=== PATIENT | female | born 1970 | race African-American/Black ===

== ENCOUNTER → 2016-08-03 | Outpatient (CLI) | payer MEDICARE, MEDICAID ==
[~2016-08-03] MED LIST: ALBUTEROL0.09 MG/A4 IH; AMANTADINE100 MG PO; ATIVAN PO; CEFDINIR300 MG PO; CELEXA20 MG PO; CLONAZEPAM PO; CYCLOBENZ5 MG PO; DEPAKOTE ER500 M1 PO; DEPAKOTE500 M2 PO; DETROL LA4 PO; DOXYCYCLINE 10100 MG PO; ESKALITH300 MG PO; GEODON PO; GEODON40 MG PO; INDERAL 10MG10 MG PO; INDERAL LA160 MG PO; KLONOPIN0.5 MG PO; LEVAQUIN 750MG750 M1 PO; LITHIUM 30300 MG/CAP PO; LUNESTA2 MG PO; LUNESTA3 MG PO; LYRICA 150MG C150 MG PO; NORCO 325 MG-51 TAB PO; OMEPRAZOLE D/R20 MG PO; Patient's Own Medication PO; RISPERDAL3 M1 PO; SENOKOT-S TAB1 UDTAB PO; SKELAXIN400 MG PO; TESSALON PERLE200 MG PO; TRAZADONE HYDR100 MG PO; TUSS PO; VIBRAMYCIN100 MG PO; VIIBRYD40 MG PO; XANAX0.25 MG PO; XANAX0.5 M1 PO; ZANTAC 7575 M1 PO
== END ==
LOC: LAB 07:53
DX: Z01.419 Encounter for gynecological examination (general) (routine) without abnormal findings (principal); J43.9 Emphysema, unspecified; R63.5 Abnormal weight gain; F41.1 Generalized anxiety disorder; E55.9 Vitamin D deficiency, unspecified; R73.01 Impaired fasting glucose

== ENCOUNTER 2017-01-20 19:55 | Emergency (ER) | payer MEDICARE, MEDICAID ==
[~2017-01-20] VITALS: Ht 175.3 cm; Wt 94.5 kg
[~2017-01-20 19:55] MED LIST changes: -CYCLOBENZ5 MG PO; -INDERAL 10MG10 MG PO; -ZANTAC 7575 M1 PO
[2017-01-20] MEDS ORDERED: ZANTAC 7575 M1 PO (20:04)
[2017-01-20] MEDS ORDERED: CYCLOBENZ5 MG PO (20:04)
[2017-01-20] MEDS ORDERED: INDERAL 10MG10 MG PO (20:06)
[2017-01-20 21:52] VITALS: BP 125/93
== END 2017-01-20 21:54 | disposition home or self-care (01) ==
LOC: ED 19:55
DX: F41.9 Anxiety disorder, unspecified (principal); F31.9 Bipolar disorder, unspecified; R06.02 Shortness of breath; R07.9 Chest pain, unspecified

== ENCOUNTER → 2017-03-05 | Outpatient (CLI) | payer MEDICARE ==
[~2017-03-05] MED LIST changes: +CYCLOBENZ5 MG PO; +INDERAL 10MG10 MG PO; +LAMICTAL 25MG T25 MG PO; +RT SPIRIVA INH18 MCG IH; +SYMBICORT1 AE2 IH; +ZANTAC 7575 M1 PO
== END ==
LOC: LAB 07:51
DX: Z79.899 Other long term (current) drug therapy (principal)

== ENCOUNTER → 2017-03-10 | Outpatient (CLI) | payer MEDICARE | LOC: LAB 09:52 | DX: E78.2 Mixed hyperlipidemia (principal); R73.01 Impaired fasting glucose; J44.1 Chronic obstructive pulmonary disease with (acute) exacerbation ==

== ENCOUNTER 2017-03-22 21:00 | Emergency (ER) | payer MEDICARE ==
[~2017-03-22] VITALS: Ht 175.3 cm; Wt 95.9 kg
[~2017-03-22 21:00] MED LIST changes: -LAMICTAL 25MG T25 MG PO; -RT SPIRIVA INH18 MCG IH; -SYMBICORT1 AE2 IH
[2017-03-22] MEDS ORDERED: LAMICTAL 25MG T25 MG PO (21:11)
[2017-03-22] MEDS ORDERED: SYMBICORT1 AE2 IH (21:11)
[2017-03-22] MEDS ORDERED: LITHIUM 30300 MG/CAP PO (21:12)
[2017-03-22] MEDS ORDERED: RT SPIRIVA INH18 MCG IH (21:12)
[2017-03-23 00:04] VITALS: BP 145/93
== END 2017-03-23 00:04 | disposition home or self-care (01) ==
LOC: ED 21:00
DX: K59.00 Constipation, unspecified (principal); F31.9 Bipolar disorder, unspecified; F41.9 Anxiety disorder, unspecified; F60.3 Borderline personality disorder; B19.20 Unspecified viral hepatitis C without hepatic coma
CPT/HCPCS: J1885; J2270; J2405; J7030; Q9967

== ENCOUNTER → 2017-03-30 | Outpatient (CLI) | payer MEDICARE ==
[~2017-03-30] VITALS: Ht 175.3 cm; Wt 95.0 kg
[~2017-03-30] MED LIST changes: +IMITREX100 M1 PO; +LAMICTAL 25MG T25 MG PO; +LINZESS145 MCG PO; +RANITIDINE HCL150 M1 PO; +RT SPIRIVA INH18 MCG IH; +SYMBICORT1 AE2 IH
[2017-03-30 12:49] VITALS: BP 124/74
== END ==
LOC: AMSURD 11:49
DX: K59.00 Constipation, unspecified (principal)

== ENCOUNTER → 2017-03-31 | Outpatient (CLI) | payer MEDICARE ==
[2017-03-30 12:49] VITALS: BP 124/74
== END ==
LOC: RAD 11:42
DX: K59.00 Constipation, unspecified (principal)

== ENCOUNTER → 2017-04-16 | Outpatient (CLI) | payer MEDICARE ==
[2017-03-30 12:49] VITALS: BP 124/74
== END ==
LOC: LAB 07:51
DX: B18.2 Chronic viral hepatitis C (principal)

== ENCOUNTER → 2017-04-27 | Day surgery (SDC) | payer MEDICARE ==
[2017-03-30 12:49] VITALS: BP 124/74
== END ==
LOC: MSO 14:23
DX: R19.4 Change in bowel habit (principal); F41.9 Anxiety disorder, unspecified; G43.909 Migraine, unspecified, not intractable, without status migrainosus; F31.9 Bipolar disorder, unspecified; J44.9 Chronic obstructive pulmonary disease, unspecified; K21.9 Gastro-esophageal reflux disease without esophagitis; K59.00 Constipation, unspecified; M79.7 Fibromyalgia; Z87.891 Personal history of nicotine dependence
CPT/HCPCS: 00810; J3010; J7120

== ENCOUNTER → 2017-07-16 | Outpatient (CLI) | payer MEDICARE ==
[2017-03-30 12:49] VITALS: BP 124/74
== END ==
LOC: LAB 07:47
DX: Z51.81 Encounter for therapeutic drug level monitoring (principal); Z79.899 Other long term (current) drug therapy

== ENCOUNTER → 2017-09-08 | Outpatient (CLI) | payer MEDICARE ==
[2017-03-30 12:49] VITALS: BP 124/74
[2017-09-08 10:58] LABS: ALBUMIN 4.3 g/dL (3.5-5.0); BUN/CREATININE RATIO 15.1 (6.0-26.0); CALCIUM 9.6 mg/dL (8.4-10.2); POTASSIUM 4.5 mmol/L (3.6-5.0); TOTAL BILIRUBIN 0.1 mg/dL (0.2-1.3); TOTAL PROTEIN 7.6 g/dL (6.3-8.2)
[2017-09-08 10:59] LABS: EOS # 0.3 (0.04-0.40); EOS % 3.1 % (1.0-5.0); HEMATOCRIT 38.5 % (37.0-47.0); HEMOGLOBIN 12.1 g/dL (12.5-16.0); LYMPH# 2.6 (1.50-4.00); MEAN CELL VOLUME 93 fl (78-100); MEAN CORPUSCULAR HEMOGLOBIN 29 pg (27-31); MEAN CORPUSCULAR HGB CONC 31 g/dL (33-37); MEAN PLATELET VOLUME 9.1 fl (7.4-10.4); MONO # 0.8 (0.20-0.80); NEU # 4.4 (1.40-6.50); PLATELET COUNT 327 K/mm3 (130-400); RED BLOOD COUNT 4.16 M/mm3 (4.10-5.30)
== END ==
LOC: RAD 10:09
PROVIDERS: Nurse Practitioner Family
DX: M54.6 Pain in thoracic spine (principal); R63.5 Abnormal weight gain; R53.81 Other malaise; Z88.1 Allergy status to other antibiotic agents

== ENCOUNTER → 2017-12-15 | Outpatient (CLI) | payer MEDICARE ==
[2017-03-30 12:49] VITALS: BP 124/74
[2017-12-15 11:18] LABS: BUN/CREATININE RATIO 10.6 (6.0-26.0); CALCIUM 9.1 mg/dL (8.4-10.2); POTASSIUM 4.1 mmol/L (3.6-5.0); TOTAL BILIRUBIN 0.3 mg/dL (0.2-1.3); TOTAL PROTEIN 7.8 g/dL (6.3-8.2)
== END ==
LOC: LAB 10:32
PROVIDERS: Family Medicine
DX: R73.9 Hyperglycemia, unspecified (principal)

== ENCOUNTER 2018-04-08 08:14 | Emergency (ER) | payer MEDICARE ==
[2018-04-08 08:51] LABS: EOS # 0.2 (0.04-0.40); EOS % 2.8 % (1.0-5.0); HEMATOCRIT 40.6 % (37.0-47.0); HEMOGLOBIN 13.1 g/dL (12.5-16.0); LYMPH# 2.1 (1.50-4.00); MEAN CELL VOLUME 85 fl (78-100); MEAN CORPUSCULAR HEMOGLOBIN 27 pg (27-31); MEAN CORPUSCULAR HGB CONC 32 g/dL (33-37); MONO # 0.9 (0.20-0.80); NEU # 5.1 (1.40-6.50); PLATELET COUNT 252 K/mm3 (130-400); RED BLOOD COUNT 4.78 M/mm3 (4.10-5.30); RED CELL DISTRIBUTION WIDTH 17.1 % (11.5-14.5); WHITE BLOOD COUNT 8.3 K/mm3 (4.8-10.8)
[2018-04-08 09:03] LABS: ALBUMIN 4.4 g/dL (3.5-5.0); CALCIUM 9.8 mg/dL (8.4-10.2); POTASSIUM 3.8 mmol/L (3.6-5.0); TOTAL BILIRUBIN 0.8 mg/dL (0.2-1.3); TOTAL PROTEIN 7.9 g/dL (6.3-8.2)
[2018-04-08] MEDS ORDERED: ZOFRAN ODT4 MG PO (10:57)
[2018-04-08] MEDS ORDERED: VOLTAREN GEL1% TOP (11:09)
[2018-04-08] MEDS ORDERED: GLUCOPHAGE PO (11:10)
[2018-04-08] MEDS ORDERED: SYMBICORT1 AE2 (11:10)
[2018-04-08] MEDS ORDERED: PRILOSEC 20MG20 MG PO (11:10)
[2018-04-08] MEDS ORDERED: LYRICA 150MG C150 MG PO (11:11)
[2018-04-08 11:12] VITALS: BP 132/88
[2018-04-08] MEDS ORDERED: GEODON (11:12)
[2018-04-08] MEDS ORDERED: MELOXICAM15 MG PO (11:13)
== END 2018-04-08 11:15 | disposition home or self-care (01) ==
LOC: ED 08:14
PROVIDERS: Nurse Practitioner Primary Care
DX: G43.909 Migraine, unspecified, not intractable, without status migrainosus (principal); E11.9 Type 2 diabetes mellitus without complications; Z79.84 Long term (current) use of oral hypoglycemic drugs; F99 Mental disorder, not otherwise specified; Z87.891 Personal history of nicotine dependence; Z79.899 Other long term (current) drug therapy
CPT/HCPCS: J1200; J1885; J2270; J2405; J2550; J7030

== ENCOUNTER → 2018-04-11 | Outpatient (CLI) | payer MEDICARE ==
[2018-04-08 11:12] VITALS: BP 132/88
[~2018-04-11] MED LIST changes: +GEODON; +GLUCOPHAGE PO; +MELOXICAM15 MG PO; +PRILOSEC 20MG20 MG PO; +SYMBICORT1 AE2; +VOLTAREN GEL1% TOP; +ZOFRAN ODT4 MG PO
[2018-04-11 20:00] LABS: ALBUMIN 4.4 g/dL (3.5-5.0); CALCIUM 9.7 mg/dL (8.4-10.2); POTASSIUM 3.8 mmol/L (3.6-5.0); TOTAL BILIRUBIN 0.5 mg/dL (0.2-1.3); TOTAL PROTEIN 7.7 g/dL (6.3-8.2)
== END ==
LOC: LAB 14:00
PROVIDERS: Psychiatry & Neurology Psychiatry
DX: Z79.899 Other long term (current) drug therapy (principal)

== ENCOUNTER → 2018-09-09 | Outpatient (CLI) | payer MEDICARE | LOC: CARDREHAB 10:27 | DX: R07.9 Chest pain, unspecified (principal); Z82.49 Family history of ischemic heart disease and other diseases of the circulatory system | CPT/HCPCS: A9500 ==

== ENCOUNTER → 2018-09-23 | Outpatient (CLI) | payer MEDICARE ==
[2018-09-23 09:14] LABS: EOS # 0.3 (0.04-0.40); HEMATOCRIT 41.1 % (37.0-47.0); HEMOGLOBIN 12.6 g/dL (12.5-16.0); LYMPH# 2.2 (1.50-4.00); MEAN CELL VOLUME 84 fl (78-100); MEAN CORPUSCULAR HEMOGLOBIN 26 pg (27-31); MEAN CORPUSCULAR HGB CONC 31 g/dL (33-37); MEAN PLATELET VOLUME 9.2 fl (7.4-10.4); MONO # 0.8 (0.20-0.80); PLATELET COUNT 378 K/mm3 (130-400); RED BLOOD COUNT 4.92 M/mm3 (4.10-5.30); RED CELL DISTRIBUTION WIDTH 16.4 % (11.5-14.5); WHITE BLOOD COUNT 8.4 K/mm3 (4.8-10.8)
[2018-09-23 09:20] LABS: ALBUMIN 4.3 g/dL (3.5-5.0); CALCIUM 9.7 mg/dL (8.4-10.2); POTASSIUM 4.1 mmol/L (3.6-5.0); TOTAL BILIRUBIN 0.4 mg/dL (0.2-1.3)
== END ==
LOC: LAB 08:21
PROVIDERS: Family Medicine
DX: R73.9 Hyperglycemia, unspecified (principal); K59.09 Other constipation; R35.0 Frequency of micturition

== ENCOUNTER → 2018-11-05 | Outpatient (CLI) | payer MEDICARE | LOC: AMSURD 18:17 → RAD 18:17 | DX: M79.9 Soft tissue disorder, unspecified (principal); M25.472 Effusion, left ankle; W19.XXXA Unspecified fall, initial encounter ==

== ENCOUNTER → 2019-01-13 | Outpatient (CLI) | payer MEDICARE ==
[2018-11-23 15:59] VITALS: BP 120/77
[~2019-01-13] MED LIST changes: +ACETAMINOPHEN-H1 TA2 PO; +ALPRAZOLAM0.5 MG PO; +AMITRIPTYLINE H25 M2 PO; +ARIPIPRAZOLE10 M1 PO; +DULOXETINE60 MG PO; +LYRICA300 MG PO; +PHENTERMINE H37.5 M2 PO; +SUMATRIPTAN SU100 MG PO
== END ==
LOC: RAD 09:44
DX: M25.461 Effusion, right knee (principal)

== ENCOUNTER → 2019-01-25 | Outpatient (CLI) | payer MEDICARE ==
[2018-11-23 15:59] VITALS: BP 120/77
== END ==
LOC: RAD 08:00
DX: M79.89 Other specified soft tissue disorders (principal)

== ENCOUNTER → 2019-02-06 | Outpatient (CLI) | payer MEDICARE ==
[2018-11-23 15:59] VITALS: BP 120/77
[2019-02-06 08:27] LABS: ALBUMIN 3.8 g/dL (3.5-5.0); POTASSIUM 4.1 mmol/L (3.5-5.1)
[2019-02-06 08:29] LABS: CALCIUM 9.4 mg/dL (8.3-10.5)
[2019-02-06 08:32] LABS: TOTAL BILIRUBIN 0.2 mg/dL (0.2-1.2)
== END ==
LOC: LAB 08:06
PROVIDERS: Psychiatry & Neurology Psychiatry
DX: Z79.899 Other long term (current) drug therapy (principal); Z51.81 Encounter for therapeutic drug level monitoring

== ENCOUNTER → 2019-03-02 | Outpatient (CLI) | payer MEDICARE ==
[2018-11-23 15:59] VITALS: BP 120/77
== END ==
LOC: RAD 11:40
DX: M17.11 Unilateral primary osteoarthritis, right knee (principal)

== ENCOUNTER → 2019-03-29 | Outpatient (CLI) | payer MEDICARE ==
[2018-11-23 15:59] VITALS: BP 120/77
== END ==
LOC: RAD 13:44
DX: R42 Dizziness and giddiness (principal); R51 Headache
CPT/HCPCS: Q9967

== ENCOUNTER 2019-05-03 10:29 | Emergency (ER) | payer MEDICARE ==
[~2019-05-03] VITALS: Ht 175.3 cm; Wt 119.5 kg
[2019-05-03] MEDS ORDERED: LITHIUM 30300 MG/CAP (10:40)
[2019-05-03 11:20] LABS: HEMATOCRIT 39.1 % (37.0-47.0); HEMOGLOBIN 12.4 g/dL (12.5-16.0); MEAN CELL VOLUME 83 fl (78-100); MEAN CORPUSCULAR HEMOGLOBIN 26 pg (27-31); MEAN CORPUSCULAR HGB CONC 32 g/dL (33-37); MEAN PLATELET VOLUME 9.7 fl (7.4-10.4); PLATELET COUNT 338 K/mm3 (130-400); RED BLOOD COUNT 4.71 M/mm3 (4.10-5.30); RED CELL DISTRIBUTION WIDTH 17.7 % (11.5-14.5); WHITE BLOOD COUNT 7.8 K/mm3 (4.8-10.8)
[2019-05-03 11:22] LABS: ALBUMIN 4.2 g/dL (3.5-5.0)
[2019-05-03 11:23] LABS: POTASSIUM 3.6 mmol/L (3.5-5.1)
[2019-05-03 11:24] LABS: CALCIUM 9.4 mg/dL (8.3-10.5)
[2019-05-03 11:25] LABS: TOTAL PROTEIN 7.9 g/dL (6.4-8.3)
[2019-05-03 11:36] LABS: LYMPHOCYTE 27 % (20-51); MONOCYTE 13 % (3-10); NEUTROPHILS 59 % (42-75); OVALOCYTES 1+; TARGET CELLS 1+
[2019-05-03 11:48] LABS: TOTAL BILIRUBIN 0.5 mg/dL (0.2-1.2)
[2019-05-03 12:27] LABS: PH-URINE 5.5 (5.0 - 8.0); URINE APPEARANCE CLEAR; URINE BILIRUBIN NEGATIVE (NEGATIVE); URINE BLOOD TRACE (NEGATIVE); URINE COLOR YELLOW; URINE GLUCOSE NEGATIVE (NEGATIVE); URINE KETONE NEGATIVE (NEGATIVE); URINE LEUKOCYTE ESTERASE TRACE (NEGATIVE); URINE NITRATE NEGATIVE (NEGATIVE); URINE PROTEIN(semi-quant) TRACE mg/dL (NEGATIVE); URINE UROBILINOGEN NORMAL (NORMAL)
[2019-05-03] MEDS ORDERED: PRILOSEC 20MG20 MG PO (13:22)
[2019-05-03] MEDS ORDERED: ZANTAC150 M1 PO (13:22)
[2019-05-03] MEDS ORDERED: CARAFATE 1GM1 G PO (13:22)
[2019-05-03 13:40] VITALS: BP 154/98
== END 2019-05-03 13:42 | disposition home or self-care (01) ==
LOC: ED 10:29
PROVIDERS: Physician Assistant
DX: K21.9 Gastro-esophageal reflux disease without esophagitis (principal); F31.9 Bipolar disorder, unspecified; M79.7 Fibromyalgia; J44.9 Chronic obstructive pulmonary disease, unspecified; Z88.8 Allergy status to other drugs, medicaments and biological substances; Z79.51 Long term (current) use of inhaled steroids
CPT/HCPCS: J7030; Q9967

== ENCOUNTER 2019-05-28 09:40 | Emergency (ER) | payer MEDICARE ==
[~2019-05-28] VITALS: Wt 121.5 kg
[~2019-05-28 09:40] MED LIST changes: +CARAFATE 1GM1 G PO; +LITHIUM 30300 MG/CAP; +ZANTAC150 M1 PO
[2019-05-28 10:24] LABS: EOS # 0.1 (0.04-0.40); EOS % 1.4 % (1.0-5.0); HEMATOCRIT 39.6 % (37.0-47.0); HEMOGLOBIN 12.3 g/dL (12.5-16.0); LYMPH# 2.2 (1.50-4.00); MEAN CELL VOLUME 83 fl (78-100); MEAN CORPUSCULAR HEMOGLOBIN 26 pg (27-31); MEAN CORPUSCULAR HGB CONC 31 g/dL (33-37); MEAN PLATELET VOLUME 9.7 fl (7.4-10.4); MONO # 0.8 (0.20-0.80); NEU # 5.3 (1.40-6.50); PLATELET COUNT 342 K/mm3 (130-400); RED BLOOD COUNT 4.78 M/mm3 (4.10-5.30); RED CELL DISTRIBUTION WIDTH 17.1 % (11.5-14.5); WHITE BLOOD COUNT 8.5 K/mm3 (4.8-10.8)
[2019-05-28 10:34] LABS: ALBUMIN 4.1 g/dL (3.5-5.0); SODIUM 138 mmol/L (136-145)
[2019-05-28 10:35] LABS: CALCIUM 9.9 mg/dL (8.3-10.5)
[2019-05-28 10:36] LABS: GLUCOSE 121 mg/dL (65-105); TOTAL PROTEIN 7.7 g/dL (6.4-8.3)
[2019-05-28 10:37] LABS: CARBON DIOXIDE 25 mmol/L (22-29)
[2019-05-28 10:38] LABS: TOTAL BILIRUBIN 0.5 mg/dL (0.2-1.2)
[2019-05-28 10:42] LABS: AST-SGOT 14 U/L (5-34)
[2019-05-28 10:43] LABS: ALT/SGPT 16 U/L (0-55)
[2019-05-28 10:49] LABS: TROPONIN-I < 0.03 ng/mL (<0.030)
[2019-05-28 12:25] VITALS: BP 163/81
== END 2019-05-28 12:26 | disposition home or self-care (01) ==
LOC: ED 09:40
PROVIDERS: Family Medicine
DX: R20.2 Paresthesia of skin (principal); F41.9 Anxiety disorder, unspecified; M79.7 Fibromyalgia; F32.9 Major depressive disorder, single episode, unspecified; K21.9 Gastro-esophageal reflux disease without esophagitis; I10 Essential (primary) hypertension; G43.909 Migraine, unspecified, not intractable, without status migrainosus; B19.20 Unspecified viral hepatitis C without hepatic coma; Z86.73 Personal history of transient ischemic attack (TIA), and cerebral infarction without residual deficits; Z87.891 Personal history of nicotine dependence

== ENCOUNTER → 2019-05-29 | Outpatient (CLI) | payer MEDICARE ==
[2019-05-28 12:25] VITALS: BP 163/81
== END ==
LOC: RAD 10:47
DX: M79.89 Other specified soft tissue disorders (principal)

== ENCOUNTER → 2019-08-21 | Outpatient (CLI) | payer MEDICARE | LOC: LAB 13:49 | DX: M54.9 Dorsalgia, unspecified (principal) ==

== ENCOUNTER 2019-10-09 00:17 | Emergency (ER) | payer MEDICARE | END 2019-10-09 00:31 | disposition left against medical advice (07) | LOC: ED 00:17 | DX: Z72.9 Problem related to lifestyle, unspecified (principal) ==

== ENCOUNTER → 2019-11-11 | Outpatient (CLI) | payer MEDICARE | LOC: LAB 15:32 | DX: J44.9 Chronic obstructive pulmonary disease, unspecified (principal); J02.9 Acute pharyngitis, unspecified; R19.7 Diarrhea, unspecified ==

== ENCOUNTER → 2020-01-03 | Outpatient (CLI) | payer MEDICARE ==
[2020-01-03 14:21] LABS: URINE APPEARANCE CLEAR; URINE BILIRUBIN NEGATIVE (NEGATIVE); URINE BLOOD NEGATIVE (NEGATIVE); URINE COLOR YELLOW; URINE GLUCOSE NEGATIVE (NEGATIVE); URINE KETONE NEGATIVE (NEGATIVE); URINE LEUKOCYTE ESTERASE NEGATIVE (NEGATIVE); URINE MUCUS PRESENT (NOT PRESENT); URINE NITRATE NEGATIVE (NEGATIVE); URINE PROTEIN(semi-quant) TRACE mg/dL (NEGATIVE); URINE UROBILINOGEN NORMAL (NORMAL)
== END ==
LOC: LAB 09:19
PROVIDERS: Family Medicine
DX: R30.0 Dysuria (principal)

== ENCOUNTER → 2020-01-31 | Outpatient (CLI) | payer MEDICARE | LOC: RAD 09:34 | DX: I51.7 Cardiomegaly (principal); K76.0 Fatty (change of) liver, not elsewhere classified; J44.9 Chronic obstructive pulmonary disease, unspecified | CPT/HCPCS: Q9967 ==

== ENCOUNTER → 2020-06-11 | Outpatient (CLI) | payer MEDICARE ==
[2020-03-25 10:08] VITALS: BP 122/78
[~2020-06-11] MED LIST changes: +ABILIFY5 MG PO; +BUDESONIDE-FO10.2 G1 IH; +CYCLOBENZAPRINE10 M1 PO; +PROAIR HFA0.09 MG/AC IH; +WELLBUTRIN XL300 M1 PO
[2020-06-11 14:54] LABS: EOS # 0.2 (0.04-0.40); EOS % 1.9 % (1.0-5.0); HEMATOCRIT 42.5 % (37.0-47.0); HEMOGLOBIN 13.3 g/dL (12.5-16.0); LYMPH# 3.4 (1.50-4.00); MEAN CELL VOLUME 85 fl (78-100); MEAN CORPUSCULAR HEMOGLOBIN 27 pg (27-31); MEAN CORPUSCULAR HGB CONC 31 g/dL (33-37); MEAN PLATELET VOLUME 9.1 fl (7.4-10.4); NEU # 6.2 (1.40-6.50); PLATELET COUNT 305 K/mm3 (130-400); WHITE BLOOD COUNT 10.8 K/mm3 (4.8-10.8)
[2020-06-11 15:04] LABS: ALBUMIN 3.9 g/dL (3.5-5.0); POTASSIUM 3.9 mmol/L (3.5-5.1)
[2020-06-11 15:05] LABS: CALCIUM 9.2 mg/dL (8.3-10.5)
[2020-06-11 15:07] LABS: TOTAL PROTEIN 7.5 g/dL (6.4-8.3)
[2020-06-11 15:09] LABS: PROTHROMBIN TIME 9.8 SECONDS (9.0-12.0); TOTAL BILIRUBIN 0.3 mg/dL (0.2-1.2)
== END ==
LOC: RAD 14:30
PROVIDERS: Family Medicine
DX: M25.432 Effusion, left wrist (principal); E66.9 Obesity, unspecified; Z79.01 Long term (current) use of anticoagulants; E55.9 Vitamin D deficiency, unspecified; R58 Hemorrhage, not elsewhere classified

== ENCOUNTER → 2020-06-13 | Outpatient (CLI) | payer MEDICARE ==
[2020-03-25 10:08] VITALS: BP 122/78
[2020-06-13 12:08] LABS: URINE APPEARANCE HAZY; URINE BILIRUBIN NEGATIVE (NEGATIVE); URINE BLOOD NEGATIVE (NEGATIVE); URINE COLOR YELLOW; URINE GLUCOSE NEGATIVE (NEGATIVE); URINE KETONE NEGATIVE (NEGATIVE); URINE LEUKOCYTE ESTERASE NEGATIVE (NEGATIVE); URINE MUCUS PRESENT (NOT PRESENT); URINE NITRATE NEGATIVE (NEGATIVE); URINE PROTEIN(semi-quant) TRACE mg/dL (NEGATIVE); URINE UROBILINOGEN NORMAL (NORMAL)
== END ==
LOC: LAB 10:46
PROVIDERS: Family Medicine
DX: R19.7 Diarrhea, unspecified (principal)

== ENCOUNTER → 2020-07-17 | Outpatient (CLI) | payer MEDICARE ==
[2020-03-25 10:08] VITALS: BP 122/78
== END ==
LOC: RAD 10:33
DX: M51.34 Other intervertebral disc degeneration, thoracic region (principal); M47.816 Spondylosis without myelopathy or radiculopathy, lumbar region; M16.11 Unilateral primary osteoarthritis, right hip

== ENCOUNTER → 2020-08-14 | Outpatient (CLI) | payer MEDICARE ==
[2020-03-25 10:08] VITALS: BP 122/78
== END ==
LOC: LAB 07:59
DX: Z51.81 Encounter for therapeutic drug level monitoring (principal)

== ENCOUNTER → 2020-09-10 | Outpatient (CLI) | payer MEDICARE ==
[2020-03-25 10:08] VITALS: BP 122/78
[~2020-09-10] MED LIST changes: +ALPRAZOLAM1 MG PO; +AMITRIPTYLINE H50 M1 PO; +ASENAPINE MALEA10 MG PO; +BETAMETHASONE V15 G1 TP; +DITROPAN 5MG TAB5 MG PO; +EFFER-K20 MEQ PO; +FOLIC ACID1 MG PO; +GOOD NEIGHBOR P20 M1 PO; +LAMOTRIGINE100 M3 PO; +LAMOTRIGINE25 M1 PO; -LITHIUM 30300 MG/CAP; +LITHIUM CARBON300 M3 PO; +METFORMIN ER500 MG PO; +METHOTREXATE2.5 MG PO; +MIRALAX119 GM PO; +PHENERGAN 25 TA25 MG PO; +POTASSIUM CHLO20 ME4 PO; +PREDNISONE20 M1 PO; +PREGABALIN300 MG PO; +PROPRANOLOL ER80 MG PO; +PROTONIX20 M1 PO; +RT ADVAIR HFA 1112 G IH; +SYMBICORT1 AE3 IH; +TOPIRAMATE200 MG PO; +VITAMIN D3125 MC1 PO; +WELLBUTRIN XL150 M2 PO
== END ==
LOC: RAD 07:39
DX: M47.816 Spondylosis without myelopathy or radiculopathy, lumbar region (principal); M47.817 Spondylosis without myelopathy or radiculopathy, lumbosacral region

== ENCOUNTER 2020-11-24 15:11 | Emergency (ER) | payer MEDICARE ==
[~2020-11-24 15:11] MED LIST changes: -ALPRAZOLAM1 MG PO; -AMITRIPTYLINE H50 M1 PO; -ASENAPINE MALEA10 MG PO; -BETAMETHASONE V15 G1 TP; -DITROPAN 5MG TAB5 MG PO; -EFFER-K20 MEQ PO; -FOLIC ACID1 MG PO; -GOOD NEIGHBOR P20 M1 PO; -LAMOTRIGINE100 M3 PO; -LAMOTRIGINE25 M1 PO; -LITHIUM CARBON300 M3 PO; -METFORMIN ER500 MG PO; -METHOTREXATE2.5 MG PO; -MIRALAX119 GM PO; -PHENERGAN 25 TA25 MG PO; -POTASSIUM CHLO20 ME4 PO; -PREDNISONE20 M1 PO; -PREGABALIN300 MG PO; -PROPRANOLOL ER80 MG PO; -PROTONIX20 M1 PO; -RT ADVAIR HFA 1112 G IH; -SYMBICORT1 AE3 IH; -TOPIRAMATE200 MG PO; -VITAMIN D3125 MC1 PO; -WELLBUTRIN XL150 M2 PO
[2020-11-24] MEDS ORDERED: TOPIRAMATE200 MG PO (15:32)
[2020-11-24] MEDS ORDERED: ALPRAZOLAM1 MG PO (15:32)
[2020-11-24] MEDS ORDERED: DITROPAN 5MG TAB5 MG PO (15:32)
[2020-11-24] MEDS ORDERED: AMITRIPTYLINE H50 M1 PO (15:32)
[2020-11-24] MEDS ORDERED: BETAMETHASONE V15 G1 TP (15:33)
[2020-11-24] MEDS ORDERED: MELOXICAM15 MG PO (15:33)
[2020-11-24 16:07] LABS: BASO # 0.03 (0.02-0.10); EOS # 0.19 (0.04-0.40); EOS % 2.5 % (1.0-5.0); HEMATOCRIT 42.1 % (37.0-47.0); HEMOGLOBIN 13.8 g/dL (12.5-16.0); LYMPH# 1.95 (1.50-4.00); MEAN CELL VOLUME 85 fl (78-100); MEAN CORPUSCULAR HEMOGLOBIN 28 pg (27-31); MEAN CORPUSCULAR HGB CONC 33 g/dL (33-37); MEAN PLATELET VOLUME 9.6 fl (7.4-10.4); NEU # 4.59 (1.40-6.50); PLATELET COUNT 198 K/mm3 (130-400); RED BLOOD COUNT 4.97 M/mm3 (4.10-5.30); RED CELL DISTRIBUTION WIDTH 16.8 % (11.5-14.5); WHITE BLOOD COUNT 7.7 K/mm3 (4.8-10.8)
[2020-11-24 16:15] LABS: PH-URINE 6.5 (5.0 - 8.0); URINE APPEARANCE CLEAR; URINE BILIRUBIN NEGATIVE (NEGATIVE); URINE BLOOD TRACE (NEGATIVE); URINE COLOR YELLOW; URINE KETONE NEGATIVE (NEGATIVE); URINE LEUKOCYTE ESTERASE NEGATIVE (NEGATIVE); URINE MUCUS PRESENT (NOT PRESENT); URINE NITRATE NEGATIVE (NEGATIVE); URINE PROTEIN(semi-quant) NEGATIVE (NEGATIVE); URINE UROBILINOGEN NORMAL (NORMAL)
[2020-11-24 16:18] LABS: POTASSIUM 3.2 mmol/L (3.5-5.1)
[2020-11-24 16:19] LABS: CALCIUM 9.2 mg/dL (8.3-10.5)
[2020-11-24 16:20] LABS: TOTAL PROTEIN 7.4 g/dL (6.4-8.3)
[2020-11-24 16:22] LABS: TOTAL BILIRUBIN 0.4 mg/dL (0.2-1.2)
[2020-11-24] MEDS ORDERED: PHENERGAN 25 TA25 MG PO (17:04)
[2020-11-24] MEDS ORDERED: PROTONIX20 M1 PO (17:04)
[2020-11-24 18:21] VITALS: BP 168/89
== END 2020-11-24 18:18 | disposition short-term general hospital (02) ==
LOC: ED 15:11
PROVIDERS: Nurse Practitioner
DX: E11.65 Type 2 diabetes mellitus with hyperglycemia (principal); E87.6 Hypokalemia; J44.9 Chronic obstructive pulmonary disease, unspecified; F41.9 Anxiety disorder, unspecified; F32.9 Major depressive disorder, single episode, unspecified; Z79.51 Long term (current) use of inhaled steroids; Z79.899 Other long term (current) drug therapy
CPT/HCPCS: J3480; J7030

== ENCOUNTER → 2020-12-02 | Outpatient (CLI) | payer MEDICARE ==
[2020-11-24 18:21] VITALS: BP 168/89
[~2020-12-02] MED LIST changes: +ALPRAZOLAM1 MG PO; +AMITRIPTYLINE H50 M1 PO; +ASENAPINE MALEA10 MG PO; +BETAMETHASONE V15 G1 TP; +DITROPAN 5MG TAB5 MG PO; +EFFER-K20 MEQ PO; +FOLIC ACID1 MG PO; +GOOD NEIGHBOR P20 M1 PO; +LAMOTRIGINE100 M3 PO; +LAMOTRIGINE25 M1 PO; +LITHIUM CARBON300 M3 PO; +METFORMIN ER500 MG PO; +METHOTREXATE2.5 MG PO; +MIRALAX119 GM PO; +PHENERGAN 25 TA25 MG PO; +POTASSIUM CHLO20 ME4 PO; +PREDNISONE20 M1 PO; +PREGABALIN300 MG PO; +PROPRANOLOL ER80 MG PO; +PROTONIX20 M1 PO; +RT ADVAIR HFA 1112 G IH; +SYMBICORT1 AE3 IH; +TOPIRAMATE200 MG PO; +VITAMIN D3125 MC1 PO; +WELLBUTRIN XL150 M2 PO
[2020-12-02 12:15] LABS: ALBUMIN 4.1 g/dL (3.5-5.0); POTASSIUM 4.1 mmol/L (3.5-5.1)
[2020-12-02 12:17] LABS: CALCIUM 9.7 mg/dL (8.3-10.5)
[2020-12-02 12:18] LABS: TOTAL PROTEIN 7.8 g/dL (6.4-8.3)
[2020-12-02 12:20] LABS: TOTAL BILIRUBIN 0.3 mg/dL (0.2-1.2)
[2020-12-02 13:47] LABS: URINE APPEARANCE CLOUDY; URINE BILIRUBIN NEGATIVE (NEGATIVE); URINE BLOOD NEGATIVE (NEGATIVE); URINE COLOR YELLOW; URINE GLUCOSE NEGATIVE (NEGATIVE); URINE KETONE NEGATIVE (NEGATIVE); URINE LEUKOCYTE ESTERASE NEGATIVE (NEGATIVE); URINE MUCUS PRESENT (NOT PRESENT); URINE NITRATE NEGATIVE (NEGATIVE); URINE PROTEIN(semi-quant) NEGATIVE (NEGATIVE); URINE UROBILINOGEN NORMAL (NORMAL)
== END ==
LOC: LAB 11:55
PROVIDERS: Family Medicine
DX: E11.9 Type 2 diabetes mellitus without complications (principal); N39.0 Urinary tract infection, site not specified

== ENCOUNTER → 2020-12-17 | Outpatient (CLI) | payer MEDICARE ==
[2020-11-24 18:21] VITALS: BP 168/89
== END ==
LOC: LAB 14:00
DX: R30.9 Painful micturition, unspecified (principal)

== ENCOUNTER 2020-12-20 08:30 | Emergency (ER) | payer MEDICARE ==
[~2020-12-20 08:30] MED LIST changes: -ASENAPINE MALEA10 MG PO; -EFFER-K20 MEQ PO; -FOLIC ACID1 MG PO; -GOOD NEIGHBOR P20 M1 PO; -LAMOTRIGINE100 M3 PO; -LAMOTRIGINE25 M1 PO; -LITHIUM CARBON300 M3 PO; -METFORMIN ER500 MG PO; -METHOTREXATE2.5 MG PO; -MIRALAX119 GM PO; -POTASSIUM CHLO20 ME4 PO; -PREDNISONE20 M1 PO; -PREGABALIN300 MG PO; -PROPRANOLOL ER80 MG PO; -RT ADVAIR HFA 1112 G IH; -SYMBICORT1 AE3 IH; -VITAMIN D3125 MC1 PO; -WELLBUTRIN XL150 M2 PO
[2020-12-20 09:35] LABS: BASO # 0.03 (0.02-0.10); EOS # 0.26 (0.04-0.40); EOS % 3.4 % (1.0-5.0); HEMATOCRIT 43.7 % (37.0-47.0); HEMOGLOBIN 13.8 g/dL (12.5-16.0); LYMPH# 1.86 (1.50-4.00); MEAN CELL VOLUME 86 fl (78-100); MEAN CORPUSCULAR HEMOGLOBIN 27 pg (27-31); MEAN CORPUSCULAR HGB CONC 32 g/dL (33-37); MEAN PLATELET VOLUME 9.1 fl (7.4-10.4); MONO # 0.92 (0.20-0.80); NEU # 4.58 (1.40-6.50); PLATELET COUNT 297 K/mm3 (130-400); RED BLOOD COUNT 5.11 M/mm3 (4.10-5.30); WHITE BLOOD COUNT 7.7 K/mm3 (4.8-10.8)
[2020-12-20 09:40] LABS: POTASSIUM 3.8 mmol/L (3.5-5.1); SODIUM 136 mmol/L (136-145)
[2020-12-20 09:42] LABS: CALCIUM 9.9 mg/dL (8.3-10.5)
[2020-12-20 09:43] LABS: GLUCOSE 173 mg/dL (65-105); TOTAL PROTEIN 7.9 g/dL (6.4-8.3)
[2020-12-20 09:45] LABS: TOTAL BILIRUBIN 0.3 mg/dL (0.2-1.2)
[2020-12-20 09:48] LABS: AST-SGOT 24 U/L (5-34)
[2020-12-20 09:49] LABS: ALT/SGPT 38 U/L (0-55)
[2020-12-20 09:50] LABS: LIPASE 32 U/L (8-78)
[2020-12-20 09:51] LABS: CARBON DIOXIDE 17 mmol/L (22-29)
[2020-12-20 10:21] LABS: TROPONIN-I < 0.03 ng/mL (<0.030)
[2020-12-20] MEDS ORDERED: WELLBUTRIN XL150 M2 PO (10:21)
[2020-12-20] MEDS ORDERED: FOLIC ACID1 MG PO (10:22)
[2020-12-20] MEDS ORDERED: ASENAPINE MALEA10 MG PO (10:22)
[2020-12-20] MEDS ORDERED: LITHIUM CARBON300 M3 PO (10:23)
[2020-12-20] MEDS ORDERED: MIRALAX119 GM PO (10:24)
[2020-12-20] MEDS ORDERED: METFORMIN ER500 MG PO (10:24)
[2020-12-20] MEDS ORDERED: GOOD NEIGHBOR P20 M1 PO (10:25)
[2020-12-20] MEDS ORDERED: ZOFRAN ODT4 MG PO (10:25)
[2020-12-20] MEDS ORDERED: SUMATRIPTAN SU100 MG PO (10:27)
[2020-12-20] MEDS ORDERED: SYMBICORT1 AE3 IH (10:27)
[2020-12-20] MEDS ORDERED: VITAMIN D3125 MC1 PO (10:29)
[2020-12-20 11:54] LABS: URINE APPEARANCE HAZY; URINE BILIRUBIN NEGATIVE (NEGATIVE); URINE BLOOD NEGATIVE (NEGATIVE); URINE COLOR YELLOW; URINE GLUCOSE NEGATIVE (NEGATIVE); URINE KETONE NEGATIVE (NEGATIVE); URINE LEUKOCYTE ESTERASE NEGATIVE (NEGATIVE); URINE NITRATE NEGATIVE (NEGATIVE); URINE PROTEIN(semi-quant) NEGATIVE (NEGATIVE); URINE UROBILINOGEN NORMAL (NORMAL); URINE WBC 0-1 /hpf (0-3)
[2020-12-20 12:01] VITALS: BP 138/89
== END 2020-12-20 12:06 | disposition home or self-care (01) ==
LOC: ED 08:30
PROVIDERS: Nurse Practitioner
DX: R10.31 Right lower quadrant pain (principal); R91.1 Solitary pulmonary nodule; T36.8X5A Adverse effect of other systemic antibiotics, initial encounter; E11.9 Type 2 diabetes mellitus without complications; F31.9 Bipolar disorder, unspecified; F41.9 Anxiety disorder, unspecified; Z87.891 Personal history of nicotine dependence; Z79.899 Other long term (current) drug therapy; Z79.84 Long term (current) use of oral hypoglycemic drugs
CPT/HCPCS: J2405; J3010; J7030; Q9967

== ENCOUNTER → 2020-12-26 | Outpatient (CLI) | payer MEDICARE ==
[~2020-12-26] MED LIST changes: +ASENAPINE MALEA10 MG PO; +EFFER-K20 MEQ PO; +FOLIC ACID1 MG PO; +GOOD NEIGHBOR P20 M1 PO; +LAMOTRIGINE100 M3 PO; +LAMOTRIGINE25 M1 PO; +LITHIUM CARBON300 M3 PO; +METFORMIN ER500 MG PO; +METHOTREXATE2.5 MG PO; +MIRALAX119 GM PO; +POTASSIUM CHLO20 ME4 PO; +PREDNISONE20 M1 PO; +PREGABALIN300 MG PO; +PROPRANOLOL ER80 MG PO; +RT ADVAIR HFA 1112 G IH; +SYMBICORT1 AE3 IH; +VITAMIN D3125 MC1 PO; +WELLBUTRIN XL150 M2 PO
== END ==
LOC: RAD 07:41
DX: R91.8 Other nonspecific abnormal finding of lung field (principal); R59.0 Localized enlarged lymph nodes
CPT/HCPCS: Q9967

== ENCOUNTER → 2021-02-11 | Outpatient (CLI) | payer MEDICARE | LOC: LAB 12:33 | DX: R59.9 Enlarged lymph nodes, unspecified (principal); R93.89 Abnormal findings on diagnostic imaging of other specified body structures ==

== ENCOUNTER 2021-02-14 16:13 | Emergency (ER) | payer MEDICARE ==
[~2021-02-14] VITALS: Ht 175.3 cm; Wt 126.8 kg
[~2021-02-14 16:13] MED LIST changes: -EFFER-K20 MEQ PO; -LAMOTRIGINE100 M3 PO; -LAMOTRIGINE25 M1 PO; -METHOTREXATE2.5 MG PO; -POTASSIUM CHLO20 ME4 PO; -PREDNISONE20 M1 PO; -PREGABALIN300 MG PO; -PROPRANOLOL ER80 MG PO; -RT ADVAIR HFA 1112 G IH
[2021-02-14 17:07] LABS: BASO # 0.02 (0.02-0.10); EOS # 0.21 (0.04-0.40); EOS % 2.7 % (1.0-5.0); HEMATOCRIT 44.9 % (37.0-47.0); HEMOGLOBIN 13.8 g/dL (12.5-16.0); LYMPH# 2.27 (1.50-4.00); MEAN CELL VOLUME 87 fl (78-100); MEAN CORPUSCULAR HEMOGLOBIN 27 pg (27-31); MEAN CORPUSCULAR HGB CONC 31 g/dL (33-37); MEAN PLATELET VOLUME 8.9 fl (7.4-10.4); MONO # 1.01 (0.20-0.80); NEU # 4.17 (1.40-6.50); PLATELET COUNT 264 K/mm3 (130-400); RED BLOOD COUNT 5.17 M/mm3 (4.10-5.30); RED CELL DISTRIBUTION WIDTH 16.1 % (11.5-14.5); WHITE BLOOD COUNT 7.7 K/mm3 (4.8-10.8)
[2021-02-14] MEDS ORDERED: LITHIUM 30300 MG/CAP PO (17:19)
[2021-02-14 17:25] LABS: ALBUMIN 3.8 g/dL (3.5-5.0); POTASSIUM 3.4 mmol/L (3.5-5.1)
[2021-02-14 17:26] LABS: CALCIUM 9.9 mg/dL (8.3-10.5)
[2021-02-14 17:27] LABS: TOTAL PROTEIN 8.1 g/dL (6.4-8.3)
[2021-02-14 17:29] LABS: TOTAL BILIRUBIN 0.4 mg/dL (0.2-1.2)
[2021-02-14 18:15] LABS: URINE COLOR YELLOW
[2021-02-14 18:16] LABS: URINE APPEARANCE HAZY; URINE BILIRUBIN NEGATIVE (NEGATIVE); URINE BLOOD TRACE (NEGATIVE); URINE GLUCOSE NEGATIVE (NEGATIVE); URINE KETONE NEGATIVE (NEGATIVE); URINE LEUKOCYTE ESTERASE NEGATIVE (NEGATIVE); URINE NITRATE NEGATIVE (NEGATIVE); URINE PROTEIN(semi-quant) NEGATIVE (NEGATIVE); URINE UROBILINOGEN NORMAL (NORMAL); URINE WBC 0-1 /hpf (0-3)
[2021-02-14 20:31] VITALS: BP 137/89
== END 2021-02-14 20:32 | disposition home or self-care (01) ==
LOC: ED 16:13
PROVIDERS: Nurse Practitioner
DX: E86.0 Dehydration (principal); R10.30 Lower abdominal pain, unspecified; F41.0 Panic disorder [episodic paroxysmal anxiety]
CPT/HCPCS: J2060; J7030

== ENCOUNTER 2021-03-11 18:21 | Emergency (ER) | payer MEDICARE ==
[2021-03-11 19:06] VITALS: BP 151/97
== END 2021-03-11 19:10 | disposition left against medical advice (07) ==
LOC: ED 18:21
DX: R69 Illness, unspecified (principal)

== ENCOUNTER → 2021-03-24 | Outpatient (CLI) | payer MEDICARE ==
[~2021-03-24] MED LIST changes: +EFFER-K20 MEQ PO; +LAMOTRIGINE100 M3 PO; +LAMOTRIGINE25 M1 PO; +METHOTREXATE2.5 MG PO; +POTASSIUM CHLO20 ME4 PO; +PREDNISONE20 M1 PO; +PREGABALIN300 MG PO; +PROPRANOLOL ER80 MG PO; +RT ADVAIR HFA 1112 G IH
[2021-03-24 14:42] LABS: POTASSIUM 4.2 mmol/L (3.5-5.1)
[2021-03-24 14:43] LABS: CALCIUM 11.3 mg/dL (8.3-10.5)
[2021-03-24 14:45] LABS: TOTAL PROTEIN 8.6 g/dL (6.4-8.3)
[2021-03-24 14:47] LABS: TOTAL BILIRUBIN 0.4 mg/dL (0.2-1.2)
[2021-03-24 15:04] LABS: BASO # 0.01 (0.02-0.10); EOS # 0.28 (0.04-0.40); EOS % 3.3 % (1.0-5.0); HEMATOCRIT 49.5 % (37.0-47.0); HEMOGLOBIN 15.6 g/dL (12.5-16.0); LYMPH# 2.83 (1.50-4.00); MEAN CELL VOLUME 86 fl (78-100); MEAN CORPUSCULAR HEMOGLOBIN 27 pg (27-31); MEAN CORPUSCULAR HGB CONC 32 g/dL (33-37); MEAN PLATELET VOLUME 9.3 fl (7.4-10.4); MONO # 1.16 (0.20-0.80); NEU # 4.29 (1.40-6.50); PLATELET COUNT 282 K/mm3 (130-400); RED BLOOD COUNT 5.74 M/mm3 (4.10-5.30); RED CELL DISTRIBUTION WIDTH 14.6 % (11.5-14.5); WHITE BLOOD COUNT 8.6 K/mm3 (4.8-10.8)
[2021-03-27 13:08] LABS: VITAMIN A 46.8 mcg/dL (())
== END ==
LOC: LAB 14:11
PROVIDERS: Family Medicine
DX: E11.22 Type 2 diabetes mellitus with diabetic chronic kidney disease (principal); N18.1 Chronic kidney disease, stage 1; D63.1 Anemia in chronic kidney disease; E56.9 Vitamin deficiency, unspecified

== ENCOUNTER 2021-03-28 21:21 | Emergency (ER) | payer MEDICARE ==
[~2021-03-28] VITALS: Ht 175.3 cm; Wt 12666.0 kg
[~2021-03-28 21:21] MED LIST changes: -EFFER-K20 MEQ PO; -LAMOTRIGINE100 M3 PO; -LAMOTRIGINE25 M1 PO; -METHOTREXATE2.5 MG PO; -POTASSIUM CHLO20 ME4 PO; -PREDNISONE20 M1 PO; -PREGABALIN300 MG PO; -PROPRANOLOL ER80 MG PO; -RT ADVAIR HFA 1112 G IH
[2021-03-28] MEDS ORDERED: GLUCOPHAGE PO (21:28)
[2021-03-28 22:29] LABS: BASO # 0.02 (0.02-0.10); EOS # 0.18 (0.04-0.40); EOS % 2.1 % (1.0-5.0); HEMATOCRIT 45.5 % (37.0-47.0); HEMOGLOBIN 14.5 g/dL (12.5-16.0); LYMPH# 2.52 (1.50-4.00); MEAN CELL VOLUME 85 fl (78-100); MEAN CORPUSCULAR HEMOGLOBIN 27 pg (27-31); MEAN CORPUSCULAR HGB CONC 32 g/dL (33-37); MEAN PLATELET VOLUME 9.4 fl (7.4-10.4); MONO # 1.11 (0.20-0.80); NEU # 4.69 (1.40-6.50); PLATELET COUNT 269 K/mm3 (130-400); RED BLOOD COUNT 5.37 M/mm3 (4.10-5.30); RED CELL DISTRIBUTION WIDTH 14.4 % (11.5-14.5); WHITE BLOOD COUNT 8.5 K/mm3 (4.8-10.8)
[2021-03-28 22:45] LABS: ALBUMIN 3.8 g/dL (3.5-5.0); POTASSIUM 3.4 mmol/L (3.5-5.1)
[2021-03-28 22:46] LABS: CALCIUM 10.9 mg/dL (8.3-10.5)
[2021-03-28 22:48] LABS: TOTAL PROTEIN 7.8 g/dL (6.4-8.3)
[2021-03-28 22:49] LABS: TOTAL BILIRUBIN 0.4 mg/dL (0.2-1.2)
[2021-03-29] MEDS ORDERED: PREGABALIN300 MG PO (08:29)
[2021-03-29 09:32] LABS: POTASSIUM 3.4 mmol/L (3.5-5.1)
[2021-03-29 09:33] LABS: CALCIUM 9.8 mg/dL (8.3-10.5)
[2021-03-29 09:45] LABS: PH-URINE 5.5 (5.0 - 8.0); URINE APPEARANCE CLEAR; URINE BILIRUBIN NEGATIVE (NEGATIVE); URINE BLOOD NEGATIVE (NEGATIVE); URINE COLOR YELLOW; URINE GLUCOSE NEGATIVE (NEGATIVE); URINE KETONE NEGATIVE (NEGATIVE); URINE LEUKOCYTE ESTERASE NEGATIVE (NEGATIVE); URINE NITRATE NEGATIVE (NEGATIVE); URINE PROTEIN(semi-quant) NEGATIVE (NEGATIVE); URINE UROBILINOGEN NORMAL (NORMAL); URINE WBC 0-1 /hpf (0-3)
[2021-03-29] MEDS ORDERED: EFFER-K20 MEQ PO (10:09)
[2021-03-29 10:21] VITALS: BP 127/77
== END 2021-03-29 10:21 | disposition home or self-care (01) ==
LOC: ED 21:21
PROVIDERS: Family Medicine
DX: K58.9 Irritable bowel syndrome, unspecified (principal); F19.94 Other psychoactive substance use, unspecified with psychoactive substance-induced mood disorder; E86.0 Dehydration; E11.9 Type 2 diabetes mellitus without complications; G43.909 Migraine, unspecified, not intractable, without status migrainosus; F41.9 Anxiety disorder, unspecified; F32.9 Major depressive disorder, single episode, unspecified; Z87.891 Personal history of nicotine dependence; Z79.84 Long term (current) use of oral hypoglycemic drugs; Z79.899 Other long term (current) drug therapy
CPT/HCPCS: J2060; J2405; J2765; J7030

== ENCOUNTER 2021-04-07 17:03 | Emergency (ER) | payer MEDICARE ==
[~2021-04-07 17:03] MED LIST changes: +EFFER-K20 MEQ PO; +PREGABALIN300 MG PO
[2021-04-07] MEDS ORDERED: PREDNISONE20 M1 PO (17:23)
[2021-04-07] MEDS ORDERED: POTASSIUM CHLO20 ME4 PO (17:23)
[2021-04-07 18:05] LABS: BASO # 0.02 (0.02-0.10); EOS # 0.07 (0.04-0.40); EOS % 0.6 % (1.0-5.0); HEMOGLOBIN 13.6 g/dL (12.5-16.0); LYMPH# 2.43 (1.50-4.00); MEAN CELL VOLUME 89 fl (78-100); MEAN CORPUSCULAR HEMOGLOBIN 27 pg (27-31); MEAN CORPUSCULAR HGB CONC 31 g/dL (33-37); MEAN PLATELET VOLUME 9.9 fl (7.4-10.4); MONO # 0.77 (0.20-0.80); NEU # 7.76 (1.40-6.50); PLATELET COUNT 282 K/mm3 (130-400); RED BLOOD COUNT 4.96 M/mm3 (4.10-5.30); RED CELL DISTRIBUTION WIDTH 14.9 % (11.5-14.5); WHITE BLOOD COUNT 11.1 K/mm3 (4.8-10.8)
[2021-04-07 18:19] LABS: ALBUMIN 3.8 g/dL (3.5-5.0); POTASSIUM 4.1 mmol/L (3.5-5.1); SODIUM 136 mmol/L (136-145)
[2021-04-07 18:20] LABS: CALCIUM 9.8 mg/dL (8.3-10.5)
[2021-04-07 18:21] LABS: GLUCOSE 372 mg/dL (65-105); TOTAL PROTEIN 7.5 g/dL (6.4-8.3)
[2021-04-07 18:23] LABS: TOTAL BILIRUBIN 0.2 mg/dL (0.2-1.2)
[2021-04-07 18:27] LABS: AST-SGOT 15 U/L (5-34)
[2021-04-07 18:28] LABS: ALT/SGPT 18 U/L (0-55)
[2021-04-07 18:32] LABS: CARBON DIOXIDE 15 mmol/L (22-29)
[2021-04-07 19:14] LABS: URINE APPEARANCE HAZY; URINE BILIRUBIN NEGATIVE (NEGATIVE); URINE BLOOD NEGATIVE (NEGATIVE); URINE COLOR YELLOW; URINE KETONE NEGATIVE (NEGATIVE); URINE LEUKOCYTE ESTERASE NEGATIVE (NEGATIVE); URINE NITRATE NEGATIVE (NEGATIVE); URINE PROTEIN(semi-quant) TRACE mg/dL (NEGATIVE); URINE UROBILINOGEN NORMAL (NORMAL); URINE WBC 0-1 /hpf (0-3)
[2021-04-07 21:54] VITALS: BP 131/98
== END 2021-04-07 19:25 | disposition home or self-care (01) ==
LOC: ED 17:03
PROVIDERS: Nurse Practitioner
DX: E11.65 Type 2 diabetes mellitus with hyperglycemia (principal); E86.0 Dehydration; Z79.84 Long term (current) use of oral hypoglycemic drugs
CPT/HCPCS: J1815; J7030

== ENCOUNTER 2021-04-14 18:33 | Emergency (ER) | payer MEDICARE ==
[~2021-04-14] VITALS: Ht 175.3 cm; Wt 117.4 kg
[~2021-04-14 18:33] MED LIST changes: +POTASSIUM CHLO20 ME4 PO; +PREDNISONE20 M1 PO
[2021-04-14 19:16] LABS: BASO # 0.01 (0.02-0.10); EOS # 0.01 (0.04-0.40); EOS % 0.1 % (1.0-5.0); HEMATOCRIT 40.1 % (37.0-47.0); HEMOGLOBIN 12.6 g/dL (12.5-16.0); LYMPH# 1.67 (1.50-4.00); MEAN CELL VOLUME 89 fl (78-100); MEAN CORPUSCULAR HEMOGLOBIN 28 pg (27-31); MEAN CORPUSCULAR HGB CONC 31 g/dL (33-37); MEAN PLATELET VOLUME 9.4 fl (7.4-10.4); MONO # 0.56 (0.20-0.80); PLATELET COUNT 240 K/mm3 (130-400); RED BLOOD COUNT 4.49 M/mm3 (4.10-5.30); RED CELL DISTRIBUTION WIDTH 15.2 % (11.5-14.5)
[2021-04-14 19:38] LABS: ALBUMIN 3.7 g/dL (3.5-5.0); POTASSIUM 4.4 mmol/L (3.5-5.1)
[2021-04-14 19:40] LABS: CALCIUM 9.8 mg/dL (8.3-10.5)
[2021-04-14 19:41] LABS: TOTAL PROTEIN 7.4 g/dL (6.4-8.3)
[2021-04-14 19:46] LABS: URINE WBC 0 /hpf (0-3)
[2021-04-14 20:08] LABS: URINE APPEARANCE CLEAR; URINE BILIRUBIN NEGATIVE (NEGATIVE); URINE BLOOD NEGATIVE (NEGATIVE); URINE COLOR YELLOW; URINE KETONE NEGATIVE (NEGATIVE); URINE LEUKOCYTE ESTERASE NEGATIVE (NEGATIVE); URINE NITRATE NEGATIVE (NEGATIVE); URINE PROTEIN(semi-quant) TRACE mg/dL (NEGATIVE); URINE UROBILINOGEN NORMAL (NORMAL)
[2021-04-14 20:11] LABS: TOTAL BILIRUBIN 0.1 mg/dL (0.2-1.2)
[2021-04-14 22:52] VITALS: BP 117/70
== END 2021-04-14 22:52 | disposition home or self-care (01) ==
LOC: ED 18:33
PROVIDERS: Nurse Practitioner
DX: E11.65 Type 2 diabetes mellitus with hyperglycemia (principal); E86.0 Dehydration; F41.9 Anxiety disorder, unspecified; F31.9 Bipolar disorder, unspecified; J44.9 Chronic obstructive pulmonary disease, unspecified; M79.7 Fibromyalgia; K21.9 Gastro-esophageal reflux disease without esophagitis; G47.00 Insomnia, unspecified; G43.909 Migraine, unspecified, not intractable, without status migrainosus; Z79.52 Long term (current) use of systemic steroids; E66.9 Obesity, unspecified; Z79.899 Other long term (current) drug therapy; Z79.51 Long term (current) use of inhaled steroids; Z79.84 Long term (current) use of oral hypoglycemic drugs; Z68.38 Body mass index [BMI] 38.0-38.9, adult
CPT/HCPCS: J1815; J7030

== ENCOUNTER → 2021-04-16 | Outpatient (CLI) | payer MEDICARE ==
[~2021-04-16] MED LIST changes: +LAMOTRIGINE100 M3 PO; +LAMOTRIGINE25 M1 PO; +METHOTREXATE2.5 MG PO; +PROPRANOLOL ER80 MG PO; +RT ADVAIR HFA 1112 G IH
[2021-04-16 10:21] LABS: BASO # 0.01 K/mm3 (0.02-0.10); EOS % 3.2 % (1.0-5.0); HEMATOCRIT 43.8 % (37.0-47.0); HEMOGLOBIN 13.3 g/dL (12.5-16.0); LYMPH# 2.84 K/mm3 (1.50-4.00); MEAN CELL VOLUME 90 fl (78-100); MEAN CORPUSCULAR HEMOGLOBIN 27 pg (27-31); MEAN CORPUSCULAR HGB CONC 30 g/dL (33-37); MEAN PLATELET VOLUME 9.4 fl (7.4-10.4); MONO # 0.76 K/mm3 (0.20-0.80); NEU # 5.41 K/mm3 (1.40-6.50); PLATELET COUNT 252 K/mm3 (130-400); RED BLOOD COUNT 4.87 M/mm3 (4.10-5.30); RED CELL DISTRIBUTION WIDTH 15.7 % (11.5-14.5); WHITE BLOOD COUNT 9.3 K/mm3 (4.8-10.8)
[2021-04-16 10:57] LABS: ALBUMIN 3.7 g/dL (3.5-5.0); POTASSIUM 4.1 mmol/L (3.5-5.1)
[2021-04-16 10:59] LABS: CALCIUM 9.6 mg/dL (8.3-10.5)
[2021-04-16 11:00] LABS: TOTAL PROTEIN 7.3 g/dL (6.4-8.3)
[2021-04-16 11:02] LABS: TOTAL BILIRUBIN 0.3 mg/dL (0.2-1.2)
== END ==
LOC: LAB 10:04
PROVIDERS: Internal Medicine Medical Oncology
DX: R59.9 Enlarged lymph nodes, unspecified (principal)

== ENCOUNTER 2021-04-25 17:05 | Emergency (ER) | payer MEDICARE ==
[~2021-04-25] VITALS: Ht 175.3 cm; Wt 122.3 kg
[~2021-04-25 17:05] MED LIST changes: -LAMOTRIGINE100 M3 PO; -LAMOTRIGINE25 M1 PO; -METHOTREXATE2.5 MG PO; -PROPRANOLOL ER80 MG PO; -RT ADVAIR HFA 1112 G IH
[2021-04-25 18:16] LABS: BASO # 0.01 K/mm3 (0.02-0.10); EOS # 0.14 K/mm3 (0.04-0.40); EOS % 1.6 % (1.0-5.0); HEMOGLOBIN 13.2 g/dL (12.5-16.0); LYMPH# 1.98 K/mm3 (1.50-4.00); MEAN CELL VOLUME 89 fl (78-100); MEAN CORPUSCULAR HEMOGLOBIN 27 pg (27-31); MEAN CORPUSCULAR HGB CONC 31 g/dL (33-37); MEAN PLATELET VOLUME 9.2 fl (7.4-10.4); MONO # 0.57 K/mm3 (0.20-0.80); PLATELET COUNT 267 K/mm3 (130-400); RED BLOOD COUNT 4.84 M/mm3 (4.10-5.30); RED CELL DISTRIBUTION WIDTH 15.9 % (11.5-14.5)
[2021-04-25 18:26] VITALS: BP 128/84
[2021-04-25 18:26] LABS: ALBUMIN 3.8 g/dL (3.5-5.0)
[2021-04-25 18:27] LABS: POTASSIUM 3.9 mmol/L (3.5-5.1); SODIUM 140 mmol/L (136-145)
[2021-04-25 18:28] LABS: CALCIUM 9.7 mg/dL (8.3-10.5)
[2021-04-25 18:29] LABS: GLUCOSE 200 mg/dL (65-105); TOTAL PROTEIN 7.5 g/dL (6.4-8.3)
[2021-04-25 18:30] LABS: CARBON DIOXIDE 20 mmol/L (22-29)
[2021-04-25 18:34] LABS: AST-SGOT 15 U/L (5-34)
[2021-04-25 18:36] LABS: ALT/SGPT 21 U/L (0-55)
[2021-04-25 18:42] LABS: TROPONIN-I < 0.03 ng/mL (<0.030)
[2021-04-25 18:54] LABS: TOTAL BILIRUBIN 0.2 mg/dL (0.2-1.2)
[2021-04-25 18:55] LABS: URINE WBC 0 /hpf (0-3)
[2021-04-25 19:19] LABS: PH-URINE 7.5 (5.0 - 8.0); URINE APPEARANCE CLEAR; URINE BILIRUBIN NEGATIVE (NEGATIVE); URINE BLOOD NEGATIVE (NEGATIVE); URINE COLOR YELLOW; URINE GLUCOSE NEGATIVE (NEGATIVE); URINE KETONE NEGATIVE (NEGATIVE); URINE LEUKOCYTE ESTERASE NEGATIVE (NEGATIVE); URINE NITRATE NEGATIVE (NEGATIVE); URINE PROTEIN(semi-quant) TRACE mg/dL (NEGATIVE); URINE UROBILINOGEN NORMAL (NORMAL)
== END 2021-04-25 20:07 | disposition home or self-care (01) ==
LOC: ED 17:05
PROVIDERS: Nurse Practitioner Family
DX: E86.0 Dehydration (principal); E11.65 Type 2 diabetes mellitus with hyperglycemia; J44.9 Chronic obstructive pulmonary disease, unspecified; F31.9 Bipolar disorder, unspecified; G43.909 Migraine, unspecified, not intractable, without status migrainosus; Z79.899 Other long term (current) drug therapy; W18.30XA Fall on same level, unspecified, initial encounter; Y93.01 Activity, walking, marching and hiking
CPT/HCPCS: J7030

== ENCOUNTER → 2021-04-29 | Outpatient (CLI) | payer MEDICARE ==
[~2021-04-29] MED LIST changes: +LAMOTRIGINE100 M3 PO; +LAMOTRIGINE25 M1 PO; +METHOTREXATE2.5 MG PO; +PROPRANOLOL ER80 MG PO; +RT ADVAIR HFA 1112 G IH
[2021-04-29 09:11] LABS: BASO # 0.03 K/mm3 (0.02-0.10); EOS # 0.45 K/mm3 (0.04-0.40); EOS % 4.5 % (1.0-5.0); HEMATOCRIT 42.6 % (37.0-47.0); HEMOGLOBIN 13.1 g/dL (12.5-16.0); LYMPH# 2.94 K/mm3 (1.50-4.00); MEAN CELL VOLUME 90 fl (78-100); MEAN CORPUSCULAR HEMOGLOBIN 28 pg (27-31); MEAN CORPUSCULAR HGB CONC 31 g/dL (33-37); MEAN PLATELET VOLUME 9.3 fl (7.4-10.4); MONO # 0.65 K/mm3 (0.20-0.80); NEU # 5.88 K/mm3 (1.40-6.50); PLATELET COUNT 270 K/mm3 (130-400); RED BLOOD COUNT 4.75 M/mm3 (4.10-5.30); RED CELL DISTRIBUTION WIDTH 16.8 % (11.5-14.5)
[2021-04-29 09:23] LABS: ALBUMIN 3.7 g/dL (3.5-5.0); POTASSIUM 3.4 mmol/L (3.5-5.1)
[2021-04-29 09:24] LABS: CALCIUM 9.5 mg/dL (8.3-10.5)
[2021-04-29 09:25] LABS: TOTAL PROTEIN 7.1 g/dL (6.4-8.3)
[2021-04-29 09:27] LABS: TOTAL BILIRUBIN 0.3 mg/dL (0.2-1.2)
== END ==
LOC: LAB 08:50
PROVIDERS: Psychiatry & Neurology Psychiatry
DX: E11.9 Type 2 diabetes mellitus without complications (principal); Z79.899 Other long term (current) drug therapy

== ENCOUNTER → 2021-05-09 | Outpatient (CLI) | payer MEDICARE | LOC: LAB 15:07 | DX: Z20.822 Contact with and (suspected) exposure to COVID-19 (principal) ==

== ENCOUNTER → 2021-05-20 | Outpatient (CLI) | payer MEDICARE ==
[2021-05-20 15:21] LABS: BASO # 0.01 K/mm3 (0.02-0.10); EOS # 0.09 K/mm3 (0.04-0.40); EOS % 0.9 % (1.0-5.0); HEMATOCRIT 43.5 % (37.0-47.0); HEMOGLOBIN 13.3 g/dL (12.5-16.0); LYMPH# 1.99 K/mm3 (1.50-4.00); MEAN CELL VOLUME 92 fl (78-100); MEAN CORPUSCULAR HEMOGLOBIN 28 pg (27-31); MEAN CORPUSCULAR HGB CONC 31 g/dL (33-37); MEAN PLATELET VOLUME 9.4 fl (7.4-10.4); MONO # 0.39 K/mm3 (0.20-0.80); NEU # 7.93 K/mm3 (1.40-6.50); PLATELET COUNT 287 K/mm3 (130-400); RED BLOOD COUNT 4.72 M/mm3 (4.10-5.30); RED CELL DISTRIBUTION WIDTH 17.2 % (11.5-14.5); WHITE BLOOD COUNT 10.4 K/mm3 (4.8-10.8)
[2021-05-20 15:25] LABS: ALBUMIN 3.9 g/dL (3.5-5.0); POTASSIUM 4.1 mmol/L (3.5-5.1)
[2021-05-20 15:27] LABS: CALCIUM 9.8 mg/dL (8.3-10.5)
[2021-05-20 15:28] LABS: TOTAL PROTEIN 7.3 g/dL (6.4-8.3)
[2021-05-20 15:30] LABS: TOTAL BILIRUBIN 0.2 mg/dL (0.2-1.2)
[2021-05-20 22:41] LABS: IMMUNOGLOBULIN E, TOTAL 629 IU/mL (0-100)
[2021-05-21 16:12] LABS: TB GOLD INTERPRETATION.TB GOLD Negative (Negative)
[2021-05-28 11:56] LABS: ANGIOTENSIN CONVERTING ENZYME 57 U/L (16 - 85)
[2021-05-31 11:29] LABS: COCCIDIOIDES CF Negative (Negative); COCCIDIOIDES IGG Negative (Negative); COCCIDIOIDES IGM Positive (Negative)
== END ==
LOC: LAB 14:35
PROVIDERS: Internal Medicine Pulmonary Disease
DX: D86.2 Sarcoidosis of lung with sarcoidosis of lymph nodes (principal); R59.9 Enlarged lymph nodes, unspecified

== ENCOUNTER 2021-06-02 10:43 | Emergency (ER) | payer MEDICARE ==
[~2021-06-02] VITALS: Ht 175.3 cm; Wt 127.3 kg
[~2021-06-02 10:43] MED LIST changes: -LAMOTRIGINE100 M3 PO; -LAMOTRIGINE25 M1 PO; -METHOTREXATE2.5 MG PO; -PROPRANOLOL ER80 MG PO; -RT ADVAIR HFA 1112 G IH
[2021-06-02] MEDS ORDERED: METHOTREXATE2.5 MG PO (10:54)
[2021-06-02] MEDS ORDERED: RT ADVAIR HFA 1112 G IH (10:54)
[2021-06-02] MEDS ORDERED: PROPRANOLOL ER80 MG PO (10:55)
[2021-06-02] MEDS ORDERED: LAMOTRIGINE100 M3 PO (10:55)
[2021-06-02] MEDS ORDERED: LAMOTRIGINE25 M1 PO (10:56)
[2021-06-02 11:58] VITALS: BP 127/85
== END 2021-06-02 11:59 | disposition home or self-care (01) ==
LOC: ED 10:43
DX: F41.9 Anxiety disorder, unspecified (principal); R42 Dizziness and giddiness; F32.1 Major depressive disorder, single episode, moderate; K21.9 Gastro-esophageal reflux disease without esophagitis; G43.909 Migraine, unspecified, not intractable, without status migrainosus; E66.9 Obesity, unspecified; E11.9 Type 2 diabetes mellitus without complications; Z68.41 Body mass index [BMI] 40.0-44.9, adult; Z79.84 Long term (current) use of oral hypoglycemic drugs; Z79.899 Other long term (current) drug therapy

== ENCOUNTER → 2021-06-02 | Outpatient (CLI) | payer MEDICARE ==
[2021-06-02 10:39] LABS: BASO # 0.02 K/mm3 (0.02-0.10); EOS # 0.24 K/mm3 (0.04-0.40); EOS % 3.1 % (1.0-5.0); HEMATOCRIT 43.6 % (37.0-47.0); HEMOGLOBIN 13.2 g/dL (12.5-16.0); LYMPH# 2.09 K/mm3 (1.50-4.00); MEAN CELL VOLUME 94 fl (78-100); MEAN CORPUSCULAR HEMOGLOBIN 29 pg (27-31); MEAN CORPUSCULAR HGB CONC 30 g/dL (33-37); MONO # 0.39 K/mm3 (0.20-0.80); NEU # 4.89 K/mm3 (1.40-6.50); PLATELET COUNT 261 K/mm3 (130-400); RED BLOOD COUNT 4.63 M/mm3 (4.10-5.30); RED CELL DISTRIBUTION WIDTH 16.9 % (11.5-14.5); WHITE BLOOD COUNT 7.6 K/mm3 (4.8-10.8)
[2021-06-02 10:47] LABS: ALBUMIN 4.1 g/dL (3.5-5.0); POTASSIUM 4.2 mmol/L (3.5-5.1)
[2021-06-02 10:48] LABS: CALCIUM 9.9 mg/dL (8.3-10.5)
[2021-06-02 10:50] LABS: TOTAL PROTEIN 7.4 g/dL (6.4-8.3)
[2021-06-02 10:51] LABS: TOTAL BILIRUBIN 0.3 mg/dL (0.2-1.2)
== END ==
LOC: LAB 10:24
PROVIDERS: Internal Medicine Pulmonary Disease
DX: D86.2 Sarcoidosis of lung with sarcoidosis of lymph nodes (principal)

== ENCOUNTER → 2021-07-21 | Outpatient (CLI) | payer MEDICARE ==
[~2021-07-21] MED LIST changes: +DECADRON 4MG TAB4 MG; +LAMOTRIGINE100 M3 PO; +LAMOTRIGINE25 M1 PO; +LYMEPAK100 MG PO; +METHOTREXATE2.5 MG PO; +PROCHLORPERAZIN10 M2; +PROPRANOLOL ER80 MG PO; +RT ADVAIR HFA 1112 G IH
[2021-07-21 10:58] LABS: BASO # 0.03 K/mm3 (0.02-0.10); EOS # 0.18 K/mm3 (0.04-0.40); EOS % 2.4 % (1.0-5.0); HEMATOCRIT 43.4 % (37.0-47.0); HEMOGLOBIN 13.6 g/dL (12.5-16.0); LYMPH# 2.39 K/mm3 (1.50-4.00); MEAN CELL VOLUME 96 fl (78-100); MEAN CORPUSCULAR HEMOGLOBIN 30 pg (27-31); MEAN CORPUSCULAR HGB CONC 31 g/dL (33-37); MEAN PLATELET VOLUME 8.7 fl (7.4-10.4); MONO # 0.59 K/mm3 (0.20-0.80); NEU # 4.33 K/mm3 (1.40-6.50); PLATELET COUNT 273 K/mm3 (130-400); RED BLOOD COUNT 4.53 M/mm3 (4.10-5.30); RED CELL DISTRIBUTION WIDTH 16.5 % (11.5-14.5); WHITE BLOOD COUNT 7.5 K/mm3 (4.8-10.8)
[2021-07-21 11:25] LABS: POTASSIUM 5.1 mmol/L (3.5-5.1)
[2021-07-21 11:27] LABS: CALCIUM 10.1 mg/dL (8.3-10.5)
[2021-07-21 11:28] LABS: TOTAL PROTEIN 7.7 g/dL (6.4-8.3)
[2021-07-21 11:30] LABS: TOTAL BILIRUBIN 0.3 mg/dL (0.2-1.2)
== END ==
LOC: LAB 10:40
PROVIDERS: Family Medicine
DX: R19.7 Diarrhea, unspecified (principal)

== ENCOUNTER 2021-08-04 15:26 | Emergency (ER) | payer MEDICARE ==
[~2021-08-04] VITALS: Wt 125.3 kg
[~2021-08-04 15:26] MED LIST changes: -DECADRON 4MG TAB4 MG; -LYMEPAK100 MG PO; -PROCHLORPERAZIN10 M2
[2021-08-04 15:59] LABS: BASO # 0.01 K/mm3 (0.02-0.10); EOS # 0.13 K/mm3 (0.04-0.40); EOS % 1.3 % (1.0-5.0); HEMATOCRIT 45.3 % (37.0-47.0); HEMOGLOBIN 14.6 g/dL (12.5-16.0); MEAN CELL VOLUME 95 fl (78-100); MEAN CORPUSCULAR HEMOGLOBIN 31 pg (27-31); MEAN CORPUSCULAR HGB CONC 32 g/dL (33-37); MEAN PLATELET VOLUME 8.9 fl (7.4-10.4); MONO # 0.88 K/mm3 (0.20-0.80); NEU # 6.07 K/mm3 (1.40-6.50); PLATELET COUNT 285 K/mm3 (130-400); RED BLOOD COUNT 4.78 M/mm3 (4.10-5.30); RED CELL DISTRIBUTION WIDTH 16.1 % (11.5-14.5); WHITE BLOOD COUNT 9.7 K/mm3 (4.8-10.8)
[2021-08-04 16:11] LABS: ALBUMIN 4.5 g/dL (3.5-5.0); SODIUM 138 mmol/L (136-145)
[2021-08-04 16:12] LABS: CALCIUM 10.4 mg/dL (8.3-10.5)
[2021-08-04 16:13] LABS: GLUCOSE 144 mg/dL (65-105); TOTAL PROTEIN 8.2 g/dL (6.4-8.3)
[2021-08-04 16:14] LABS: CARBON DIOXIDE 20 mmol/L (22-29)
[2021-08-04 16:15] LABS: TOTAL BILIRUBIN 0.6 mg/dL (0.2-1.2)
[2021-08-04 16:19] LABS: AST-SGOT 22 U/L (5-34)
[2021-08-04 16:20] LABS: ALT/SGPT 35 U/L (0-55)
[2021-08-04 16:31] LABS: TROPONIN-I < 0.030 ng/mL (<0.030)
[2021-08-04] MEDS ORDERED: PROCHLORPERAZIN10 M2 (17:20)
[2021-08-04] MEDS ORDERED: DECADRON 4MG TAB4 MG (17:20)
[2021-08-04] MEDS ORDERED: LYMEPAK100 MG PO (17:20)
[2021-08-04 17:23] VITALS: BP 169/89
== END 2021-08-04 16:55 | disposition home or self-care (01) ==
LOC: ED 15:26
PROVIDERS: Nurse Practitioner
DX: R07.9 Chest pain, unspecified (principal); F41.9 Anxiety disorder, unspecified; F31.9 Bipolar disorder, unspecified; J44.9 Chronic obstructive pulmonary disease, unspecified; M79.7 Fibromyalgia; K21.9 Gastro-esophageal reflux disease without esophagitis; G43.909 Migraine, unspecified, not intractable, without status migrainosus; E66.9 Obesity, unspecified; E11.9 Type 2 diabetes mellitus without complications; Z79.899 Other long term (current) drug therapy; Z79.51 Long term (current) use of inhaled steroids; Z79.84 Long term (current) use of oral hypoglycemic drugs

== ENCOUNTER → 2021-08-04 | Outpatient (CLI) | payer MEDICARE | LOC: LAB 12:24 | DX: U07.1 COVID-19 (principal) ==

== ENCOUNTER → 2021-09-26 | Outpatient (CLI) | payer MEDICARE ==
[~2021-09-26] MED LIST changes: +DECADRON 4MG TAB4 MG; +LYMEPAK100 MG PO; +PROCHLORPERAZIN10 M2
[2021-09-26 13:43] LABS: ALBUMIN 4.5 g/dL (3.5-5.0); POTASSIUM 4.6 mmol/L (3.5-5.1)
[2021-09-26 13:45] LABS: CALCIUM 10.5 mg/dL (8.3-10.5)
[2021-09-26 13:48] LABS: TOTAL BILIRUBIN 0.6 mg/dL (0.2-1.2)
== END ==
LOC: RAD 09-23 14:00 → LAB 13:20 → RAD 13:20
PROVIDERS: Family Medicine
DX: D86.0 Sarcoidosis of lung (principal); E11.9 Type 2 diabetes mellitus without complications; R51.9 Headache, unspecified
CPT/HCPCS: Q9967

== ENCOUNTER 2021-10-16 18:18 | Emergency (ER) | payer MEDICARE ==
[~2021-10-16] VITALS: Ht 175.3 cm; Wt 122.9 kg
[2021-10-16 19:09] LABS: BASO # 0.02 K/mm3 (0.02-0.10); EOS # 0.24 K/mm3 (0.04-0.40); EOS % 2.9 % (1.0-5.0); HEMATOCRIT 39.2 % (37.0-47.0); HEMOGLOBIN 12.5 g/dL (12.5-16.0); LYMPH# 2.02 K/mm3 (1.50-4.00); MEAN CELL VOLUME 97 fl (78-100); MEAN CORPUSCULAR HEMOGLOBIN 31 pg (27-31); MEAN CORPUSCULAR HGB CONC 32 g/dL (33-37); MEAN PLATELET VOLUME 9.2 fl (7.4-10.4); MONO # 1.04 K/mm3 (0.20-0.80); NEU # 4.86 K/mm3 (1.40-6.50); PLATELET COUNT 238 K/mm3 (130-400); RED BLOOD COUNT 4.04 M/mm3 (4.10-5.30); RED CELL DISTRIBUTION WIDTH 14.2 % (11.5-14.5); WHITE BLOOD COUNT 8.2 K/mm3 (4.8-10.8)
[2021-10-16 19:17] LABS: ALBUMIN 3.8 g/dL (3.5-5.0); POTASSIUM 4.5 mmol/L (3.5-5.1)
[2021-10-16 19:18] LABS: CALCIUM 9.3 mg/dL (8.3-10.5)
[2021-10-16 19:19] LABS: TOTAL PROTEIN 6.6 g/dL (6.4-8.3)
[2021-10-16 19:21] LABS: TOTAL BILIRUBIN 0.3 mg/dL (0.2-1.2)
[2021-10-16 19:28] LABS: LIPASE 58 U/L (8-78)
[2021-10-16 19:33] LABS: D-DIMER 0.66 mg/L FEU (0.15-0.50)
[2021-10-16 20:42] LABS: URINE WBC 0 /hpf (0-3)
[2021-10-16 21:19] LABS: URINE APPEARANCE CLEAR
[2021-10-16 21:20] LABS: PH-URINE 5.5 (5.0 - 8.0); URINE BILIRUBIN NEGATIVE (NEGATIVE); URINE BLOOD NEGATIVE (NEGATIVE); URINE COLOR YELLOW; URINE GLUCOSE NEGATIVE (NEGATIVE); URINE KETONE NEGATIVE (NEGATIVE); URINE LEUKOCYTE ESTERASE NEGATIVE (NEGATIVE); URINE NITRATE NEGATIVE (NEGATIVE); URINE PROTEIN(semi-quant) NEGATIVE (NEGATIVE); URINE UROBILINOGEN NORMAL (NORMAL)
[2021-10-16] MEDS ORDERED: OMEPRAZOLE40 MG PO (22:17)
[2021-10-16 22:27] VITALS: BP 134/82
== END 2021-10-16 22:27 | disposition home or self-care (01) ==
LOC: ED 18:18
PROVIDERS: Physician Assistant
DX: K21.9 Gastro-esophageal reflux disease without esophagitis (principal); F41.9 Anxiety disorder, unspecified
CPT/HCPCS: J1885; Q9967

== ENCOUNTER 2021-11-17 14:40 | Emergency (ER) | payer MEDICARE ==
[~2021-11-17 14:40] MED LIST changes: +OMEPRAZOLE40 MG PO
[2021-11-17 14:45] VITALS: BP 152/94
[2021-11-17 15:04] LABS: BASO # 0.01 K/mm3 (0.02-0.10); EOS # 0.13 K/mm3 (0.04-0.40); EOS % 1.2 % (1.0-5.0); HEMATOCRIT 43.3 % (37.0-47.0); LYMPH# 2.51 K/mm3 (1.50-4.00); MEAN CELL VOLUME 96 fl (78-100); MEAN CORPUSCULAR HEMOGLOBIN 31 pg (27-31); MEAN CORPUSCULAR HGB CONC 32 g/dL (33-37); MEAN PLATELET VOLUME 8.8 fl (7.4-10.4); MONO # 0.93 K/mm3 (0.20-0.80); NEU # 7.09 K/mm3 (1.40-6.50); PLATELET COUNT 274 K/mm3 (130-400); RED BLOOD COUNT 4.53 M/mm3 (4.10-5.30); RED CELL DISTRIBUTION WIDTH 13.9 % (11.5-14.5); WHITE BLOOD COUNT 10.7 K/mm3 (4.8-10.8)
[2021-11-17 15:14] LABS: POTASSIUM 4.2 mmol/L (3.5-5.1)
[2021-11-17 15:16] LABS: CALCIUM 10.9 mg/dL (8.3-10.5)
[2021-11-17 16:10] LABS: URINE APPEARANCE CLOUDY; URINE COLOR DARK YELLOW
[2021-11-17 16:11] LABS: URINE BILIRUBIN 2+ (NEGATIVE); URINE BLOOD TRACE (NEGATIVE); URINE GLUCOSE NEGATIVE (NEGATIVE); URINE KETONE 1+ (NEGATIVE); URINE LEUKOCYTE ESTERASE TRACE (NEGATIVE); URINE NITRATE NEGATIVE (NEGATIVE); URINE PROTEIN(semi-quant) TRACE (NEGATIVE); URINE UROBILINOGEN NORMAL (NORMAL)
[2021-11-17 16:14] LABS: URINE MUCUS PRESENT (NOT PRESENT)
== END 2021-11-17 16:32 | disposition home or self-care (01) ==
LOC: ED 14:40
PROVIDERS: Nurse Practitioner
DX: M54.50 Low back pain, unspecified (principal); G89.29 Other chronic pain; R53.83 Other fatigue; Z28.311 Partially vaccinated for COVID-19

== ENCOUNTER → 2021-11-19 | Outpatient (CLI) | payer MEDICARE ==
[2021-11-19 14:30] LABS: CALCIUM 9.9 mg/dL (8.3-10.5)
== END ==
LOC: LAB 14:06
PROVIDERS: Family Medicine
DX: R60.0 Localized edema (principal)

== ENCOUNTER → 2021-12-01 | Outpatient (CLI) | payer MEDICARE ==
[2021-12-01 11:47] LABS: ALBUMIN 4.3 g/dL (3.5-5.0); POTASSIUM 4.7 mmol/L (3.5-5.1)
[2021-12-01 11:48] LABS: CALCIUM 10.2 mg/dL (8.3-10.5)
[2021-12-01 11:50] LABS: TOTAL PROTEIN 7.6 g/dL (6.4-8.3)
[2021-12-01 11:52] LABS: TOTAL BILIRUBIN 0.5 mg/dL (0.2-1.2)
== END ==
LOC: LAB 11:25
PROVIDERS: Family Medicine
DX: J30.9 Allergic rhinitis, unspecified (principal); F41.9 Anxiety disorder, unspecified; J44.9 Chronic obstructive pulmonary disease, unspecified; M79.7 Fibromyalgia; K21.9 Gastro-esophageal reflux disease without esophagitis; G47.00 Insomnia, unspecified; G43.909 Migraine, unspecified, not intractable, without status migrainosus; E66.9 Obesity, unspecified; D86.0 Sarcoidosis of lung; E11.9 Type 2 diabetes mellitus without complications; E55.9 Vitamin D deficiency, unspecified; N17.9 Acute kidney failure, unspecified; B35.1 Tinea unguium

== ENCOUNTER → 2021-12-15 | Outpatient (CLI) | payer MEDICARE | LOC: RAD 09:55 | DX: N28.1 Cyst of kidney, acquired (principal); K76.0 Fatty (change of) liver, not elsewhere classified; N17.9 Acute kidney failure, unspecified ==

== ENCOUNTER → 2021-12-30 | Outpatient (CLI) | payer MEDICARE | LOC: RAD 09:23 | DX: K76.0 Fatty (change of) liver, not elsewhere classified (principal); D25.9 Leiomyoma of uterus, unspecified | CPT/HCPCS: Q9967 ==

== ENCOUNTER → 2022-02-04 | Outpatient (CLI) | payer MEDICARE ==
[~2022-02-04] MED LIST changes: +DESYREL DIVIDO150 M1 PO; +LATUDA40 MG PO; +MOUNJARO2.5 MG/0.5 SQ; +NITROGLYCERIN0.4 M1 SL; +NORVASC 10MG10 MG PO; +PROPRANOLOL HY120 MG PO; +TOPAMAX25 MG PO; +UBRELVY50 MG PO
[2022-02-04 08:00] LABS: BASO # 0.02 K/mm3 (0.02-0.10); EOS # 0.23 K/mm3 (0.04-0.40); EOS % 2.8 % (1.0-5.0); HEMATOCRIT 41.6 % (37.0-47.0); HEMOGLOBIN 13.1 g/dL (12.5-16.0); LYMPH# 2.42 K/mm3 (1.50-4.00); MEAN CELL VOLUME 97 fl (78-100); MEAN CORPUSCULAR HEMOGLOBIN 31 pg (27-31); MEAN CORPUSCULAR HGB CONC 32 g/dL (33-37); MONO # 0.85 K/mm3 (0.20-0.80); NEU # 4.83 K/mm3 (1.40-6.50); PLATELET COUNT 252 K/mm3 (130-400); RED BLOOD COUNT 4.27 M/mm3 (4.10-5.30); RED CELL DISTRIBUTION WIDTH 14.4 % (11.5-14.5); WHITE BLOOD COUNT 8.4 K/mm3 (4.8-10.8)
[2022-02-04 08:09] LABS: ALBUMIN 3.8 g/dL (3.5-5.0)
[2022-02-04 08:10] LABS: POTASSIUM 4.2 mmol/L (3.5-5.1)
[2022-02-04 08:11] LABS: CALCIUM 9.6 mg/dL (8.3-10.5)
[2022-02-04 08:12] LABS: TOTAL PROTEIN 7.1 g/dL (6.4-8.3)
[2022-02-04 08:14] LABS: TOTAL BILIRUBIN 0.3 mg/dL (0.2-1.2)
[2022-02-04 09:21] LABS: ERYTHROCYTE SEDIMENTATION RATE 6 mm/hr (0-30)
== END ==
LOC: LAB 07:44
PROVIDERS: Family Medicine
DX: J44.9 Chronic obstructive pulmonary disease, unspecified (principal); I88.0 Nonspecific mesenteric lymphadenitis; J30.9 Allergic rhinitis, unspecified; F41.9 Anxiety disorder, unspecified; F31.9 Bipolar disorder, unspecified; K21.9 Gastro-esophageal reflux disease without esophagitis; G47.00 Insomnia, unspecified; G43.909 Migraine, unspecified, not intractable, without status migrainosus; E66.9 Obesity, unspecified; G47.33 Obstructive sleep apnea (adult) (pediatric); D86.0 Sarcoidosis of lung; E11.9 Type 2 diabetes mellitus without complications; E55.9 Vitamin D deficiency, unspecified

== ENCOUNTER → 2022-02-05 | Outpatient (CLI) | payer MEDICARE ==
[2022-02-07 15:39] LABS: HELICOBACTER PYLORI STOOL AG Negative (Negative)
== END ==
LOC: LAB 10:27
PROVIDERS: Family Medicine
DX: K21.9 Gastro-esophageal reflux disease without esophagitis (principal); J30.9 Allergic rhinitis, unspecified; F41.9 Anxiety disorder, unspecified; F31.9 Bipolar disorder, unspecified; J44.9 Chronic obstructive pulmonary disease, unspecified; M79.7 Fibromyalgia; G47.00 Insomnia, unspecified; G43.909 Migraine, unspecified, not intractable, without status migrainosus; E66.9 Obesity, unspecified; G47.33 Obstructive sleep apnea (adult) (pediatric); D86.0 Sarcoidosis of lung; E11.9 Type 2 diabetes mellitus without complications; E55.9 Vitamin D deficiency, unspecified; I88.0 Nonspecific mesenteric lymphadenitis

== ENCOUNTER 2022-02-12 16:13 | Emergency (ER) | payer MEDICARE ==
[~2022-02-12] VITALS: Ht 175.3 cm; Wt 136.0 kg
[~2022-02-12 16:13] MED LIST changes: -TOPAMAX25 MG PO
[2022-02-12 16:56] LABS: BASO # 0.02 K/mm3 (0.02-0.10); EOS # 0.18 K/mm3 (0.04-0.40); EOS % 1.7 % (1.0-5.0); HEMATOCRIT 45.5 % (37.0-47.0); HEMOGLOBIN 14.8 g/dL (12.5-16.0); LYMPH# 2.67 K/mm3 (1.50-4.00); MEAN CELL VOLUME 94 fl (78-100); MEAN CORPUSCULAR HEMOGLOBIN 31 pg (27-31); MEAN CORPUSCULAR HGB CONC 33 g/dL (33-37); MEAN PLATELET VOLUME 9.7 fl (7.4-10.4); MONO # 1.15 K/mm3 (0.20-0.80); NEU # 6.28 K/mm3 (1.40-6.50); PLATELET COUNT 264 K/mm3 (130-400); RED BLOOD COUNT 4.85 M/mm3 (4.10-5.30); RED CELL DISTRIBUTION WIDTH 14.4 % (11.5-14.5); WHITE BLOOD COUNT 10.3 K/mm3 (4.8-10.8)
[2022-02-12 16:57] LABS: ALBUMIN 4.4 g/dL (3.5-5.0); POTASSIUM 4.4 mmol/L (3.5-5.1); SODIUM 137 mmol/L (136-145)
[2022-02-12 16:58] LABS: CALCIUM 9.9 mg/dL (8.3-10.5)
[2022-02-12 16:59] LABS: GLUCOSE 123 mg/dL (65-105); TOTAL PROTEIN 8.3 g/dL (6.4-8.3)
[2022-02-12] MEDS ORDERED: TOPAMAX25 MG PO (17:00)
[2022-02-12 17:01] LABS: TOTAL BILIRUBIN 0.7 mg/dL (0.2-1.2)
[2022-02-12 17:05] LABS: AST-SGOT 25 U/L (5-34)
[2022-02-12 17:06] LABS: ALT/SGPT 21 U/L (0-55)
[2022-02-12 17:29] LABS: CARBON DIOXIDE 17 mmol/L (22-29); TROPONIN-I < 0.030 ng/mL (<0.030)
[2022-02-12 18:40] LABS: URINE APPEARANCE HAZY; URINE BILIRUBIN NEGATIVE (NEGATIVE); URINE BLOOD NEGATIVE (NEGATIVE); URINE COLOR DARK YELLOW; URINE GLUCOSE NEGATIVE (NEGATIVE); URINE KETONE 1+ (NEGATIVE); URINE LEUKOCYTE ESTERASE NEGATIVE (NEGATIVE); URINE NITRATE NEGATIVE (NEGATIVE); URINE PROTEIN(semi-quant) TRACE (NEGATIVE); URINE UROBILINOGEN 1 mg/dL (NORMAL)
[2022-02-12 18:41] LABS: URINE MUCUS PRESENT (NOT PRESENT)
[2022-02-12 20:23] LABS: POTASSIUM 4.4 mmol/L (3.5-5.1)
[2022-02-12 20:24] LABS: CALCIUM 9.1 mg/dL (8.3-10.5)
[2022-02-12] MEDS ORDERED: ZOFRAN ODT4 MG PO (20:48)
[2022-02-12 20:58] VITALS: BP 148/79
== END 2022-02-12 21:00 | disposition home or self-care (01) ==
LOC: ED 16:13
PROVIDERS: Nurse Practitioner
DX: E86.0 Dehydration (principal); E66.9 Obesity, unspecified; Z68.41 Body mass index [BMI] 40.0-44.9, adult; Z87.891 Personal history of nicotine dependence; Z20.822 Contact with and (suspected) exposure to COVID-19
CPT/HCPCS: J2405; J7030

== ENCOUNTER → 2022-02-25 | Outpatient (CLI) | payer MEDICARE ==
[~2022-02-25] MED LIST changes: +TOPAMAX25 MG PO
[2022-02-25 08:11] LABS: ALBUMIN 3.8 g/dL (3.5-5.0); POTASSIUM 4.4 mmol/L (3.5-5.1)
[2022-02-25 08:12] LABS: CALCIUM 9.1 mg/dL (8.3-10.5)
[2022-02-25 08:15] LABS: TOTAL BILIRUBIN 0.3 mg/dL (0.2-1.2)
== END ==
LOC: LAB 07:33
PROVIDERS: Family Medicine
DX: B18.2 Chronic viral hepatitis C (principal); D86.0 Sarcoidosis of lung; J44.9 Chronic obstructive pulmonary disease, unspecified; F41.9 Anxiety disorder, unspecified; F31.9 Bipolar disorder, unspecified; M79.7 Fibromyalgia; K21.9 Gastro-esophageal reflux disease without esophagitis; G47.00 Insomnia, unspecified; G43.909 Migraine, unspecified, not intractable, without status migrainosus; E66.9 Obesity, unspecified; G47.33 Obstructive sleep apnea (adult) (pediatric); E55.9 Vitamin D deficiency, unspecified; E11.9 Type 2 diabetes mellitus without complications

== ENCOUNTER → 2022-02-26 | Outpatient (CLI) | payer MEDICARE | LOC: RAD 07:00 | DX: B18.2 Chronic viral hepatitis C (principal); N28.1 Cyst of kidney, acquired; K81.9 Cholecystitis, unspecified ==

== ENCOUNTER → 2022-03-19 | Outpatient (CLI) | payer MEDICARE | LOC: RAD 16:17 | DX: R10.9 Unspecified abdominal pain (principal) ==

== ENCOUNTER 2022-08-23 08:51 | Emergency (ER) | payer MEDICARE ==
[~2022-08-23] VITALS: Ht 175.3 cm; Wt 127.0 kg
[~2022-08-23 08:51] MED LIST changes: +AMOXICILLIN AND1 TA2 PO; +LEVO-T50 MCG PO; +REGLAN10 M2 PO
[2022-08-23 09:52] LABS: HEMATOCRIT 45.1 % (37.0-47.0); HEMOGLOBIN 14.1 g/dL (12.5-16.0); MEAN PLATELET VOLUME 9.4 fl (7.4-10.4); RED BLOOD COUNT 4.67 M/mm3 (4.10-5.30); RED CELL DISTRIBUTION WIDTH 14.3 % (11.5-14.5); WHITE BLOOD COUNT 6.3 K/mm3 (4.8-10.8)
[2022-08-23 10:03] LABS: POTASSIUM 4.6 mmol/L (3.5-5.1)
[2022-08-23 10:04] LABS: CALCIUM 9.4 mg/dL (8.3-10.5)
[2022-08-23 11:02] VITALS: BP 125/55
== END 2022-08-23 11:03 | disposition home or self-care (01) ==
LOC: ED 08:51
PROVIDERS: Family Medicine
DX: J00 Acute nasopharyngitis [common cold] (principal); F41.1 Generalized anxiety disorder; E66.9 Obesity, unspecified; Z20.822 Contact with and (suspected) exposure to COVID-19

== ENCOUNTER 2023-04-16 04:30 | Emergency (ER) | payer MEDICARE ==
[~2023-04-16] VITALS: Ht 175.3 cm; Wt 98.9 kg
[2023-04-16 04:30] VITALS: BP 132/76
[~2023-04-16 04:30] MED LIST changes: +BACTRIM DS TAB1 EACH PO; +BENZONATATE200 MG PO; +CAPLYTA42 MG PO; +KETOROLAC10 MG PO; +NORVASC2.5 MG; +NURTEC ODT75 MG PO; +PHENERGAN1.25 MG/ML PO; +PREDNISONE20 MG PO; +VIBRAMYCIN HYC100 MG PO
== END 2023-04-16 05:16 | disposition home or self-care (01) ==
LOC: ED 04:30
DX: R51.9 Headache, unspecified (principal); E66.9 Obesity, unspecified; Z87.891 Personal history of nicotine dependence; W01.10XA Fall on same level from slipping, tripping and stumbling with subsequent striking against unspecified object, initial encounter
CPT/HCPCS: J1885

== ENCOUNTER → 2023-04-20 | Outpatient (CLI) | payer MEDICARE ==
[2023-04-20 11:51] LABS: BASO # 0.02 K/mm3 (0.02-0.10); EOS # 0.11 K/mm3 (0.04-0.40); EOS % 1.3 % (1.0-5.0); HEMATOCRIT 48.1 % (37.0-47.0); HEMOGLOBIN 15.2 g/dL (12.5-16.0); LYMPH# 1.84 K/mm3 (1.50-4.00); MEAN CELL VOLUME 93 fl (78-100); MEAN CORPUSCULAR HEMOGLOBIN 30 pg (27-31); MEAN CORPUSCULAR HGB CONC 32 g/dL (33-37); MEAN PLATELET VOLUME 9.1 fl (7.4-10.4); MONO # 0.49 K/mm3 (0.20-0.80); NEU # 5.93 K/mm3 (1.40-6.50); PLATELET COUNT 259 K/mm3 (130-400); RED BLOOD COUNT 5.16 M/mm3 (4.10-5.30); RED CELL DISTRIBUTION WIDTH 14.4 % (11.5-14.5); WHITE BLOOD COUNT 8.4 K/mm3 (4.8-10.8)
[2023-04-20 11:56] LABS: POTASSIUM 4.3 mmol/L (3.5-5.1)
[2023-04-20 11:57] LABS: ALBUMIN 4.6 g/dL (3.5-5.0)
[2023-04-20 11:58] LABS: CALCIUM 10.3 mg/dL (8.3-10.5)
[2023-04-20 11:59] LABS: TOTAL PROTEIN 7.9 g/dL (6.4-8.3)
[2023-04-20 12:01] LABS: TOTAL BILIRUBIN 0.4 mg/dL (0.2-1.2)
[2023-04-24 11:12] LABS: CORN ALLERGEN COUNT 0.11 kU/L (()); EGG WHITE ALLERGEN COUNT <0.10 kU/L (Class 0); MILK ALLERGEN COUNT <0.10 kU/L (Class 0); ORANGE ALLERGEN COUNT <0.10 kU/L (Class 0); RICE ALLERGEN COUNT <0.10 kU/L (Class 0); SOYBEAN ALLERGEN COUNT <0.10 kU/L (Class 0); STRAWBERRY ALLERGEN COUNT <0.10 kU/L (Class 0); TOMATO ALLERGEN COUNT 0.15 kU/L (()); WHEAT ALLERGEN COUNT <0.10 kU/L (Class 0)
[2023-04-24 11:13] LABS: ALTERNARIA TENUIS CNT 2.29 kU/L (()); BERMUDA GRASS ALLERGEN COUNT 0.23 kU/L (()); COTTONWOOD TREE ALLERGEN COUNT 0.35 kU/L (Class I); DOG DANDER ALLERGEN COUNT 0.36 kU/L (Class I); ELM TREE ALLERGEN COUNT 0.62 kU/L (Class II); PEANUT ALLERGEN COUNT 0.14 kU/L (()); RUSSIAN THISTLE ALLERGEN COUNT 0.12 kU/L (())
[2023-04-24 11:14] LABS: ASPERGILLUS FUMIGATUS AL COUNT 0.64 kU/L (Class II); CAT DANDER ALLERGEN COUNT 0.69 kU/L (Class II); COCKROACH ALLERGEN COUNT 0.41 kU/L (Class I); DUST MITES (D.F.) ALLERG COUNT 7.38 kU/L (Class IV); DUST MITES (D.P.) ALLERG COUNT 3.02 kU/L (()); FIREBUSH ALLERGEN COUNT 0.27 kU/L (()); OAK ALLERGEN COUNT 0.35 kU/L (Class I); ROUGH MARSH ELDER ALLERG COUNT 0.27 kU/L (()); SHORT RAGWEED ALLERGEN COUNT 1.36 kU/L (Class II)
== END ==
LOC: LAB 11:07
PROVIDERS: Family Medicine
DX: Z00.00 Encounter for general adult medical examination without abnormal findings (principal); J44.9 Chronic obstructive pulmonary disease, unspecified; F41.9 Anxiety disorder, unspecified; F31.9 Bipolar disorder, unspecified; M79.7 Fibromyalgia; K21.9 Gastro-esophageal reflux disease without esophagitis; E03.9 Hypothyroidism, unspecified; G47.00 Insomnia, unspecified; J30.9 Allergic rhinitis, unspecified; K58.9 Irritable bowel syndrome, unspecified; G43.909 Migraine, unspecified, not intractable, without status migrainosus; E66.9 Obesity, unspecified; G47.33 Obstructive sleep apnea (adult) (pediatric); D86.0 Sarcoidosis of lung; E11.9 Type 2 diabetes mellitus without complications; E55.9 Vitamin D deficiency, unspecified; E78.5 Hyperlipidemia, unspecified; M54.50 Low back pain, unspecified; M25.561 Pain in right knee; M25.562 Pain in left knee

== ENCOUNTER → 2023-06-12 | Outpatient (CLI) | payer MEDICARE ==
[~2023-06-12] MED LIST changes: +DESVENLAFAXINE25 MG PO
== END ==
LOC: LAB 11:00
DX: J06.9 Acute upper respiratory infection, unspecified (principal); Z20.822 Contact with and (suspected) exposure to COVID-19

== ENCOUNTER → 2023-07-15 | Outpatient (CLI) | payer MEDICARE, MEDICAID ==
[2023-07-15 09:54] LABS: BASO # 0.03 K/mm3 (0.02-0.10); HEMATOCRIT 43.2 % (37.0-47.0); HEMOGLOBIN 13.7 g/dL (12.5-16.0); LYMPH# 2.33 K/mm3 (1.50-4.00); MEAN CELL VOLUME 97 fl (78-100); MEAN CORPUSCULAR HEMOGLOBIN 31 pg (27-31); MEAN CORPUSCULAR HGB CONC 32 g/dL (33-37); MEAN PLATELET VOLUME 9.2 fl (7.4-10.4); MONO # 0.97 K/mm3 (0.20-0.80); NEU # 6.32 K/mm3 (1.40-6.50); PLATELET COUNT 273 K/mm3 (130-400); RED BLOOD COUNT 4.46 M/mm3 (4.10-5.30); RED CELL DISTRIBUTION WIDTH 14.5 % (11.5-14.5); WHITE BLOOD COUNT 9.8 K/mm3 (4.8-10.8)
[2023-07-15 10:00] LABS: SODIUM 140 mmol/L (136-145)
[2023-07-15 10:02] LABS: CALCIUM 9.3 mg/dL (8.3-10.5); GLUCOSE 99 mg/dL (65-105)
[2023-07-15 10:04] LABS: CARBON DIOXIDE 26 mmol/L (22-29)
== END ==
LOC: LAB 09:03
PROVIDERS: Nurse Practitioner Family
DX: M19.072 Primary osteoarthritis, left ankle and foot (principal)

== ENCOUNTER → 2023-07-22 | Outpatient (CLI) | payer MEDICARE, MEDICAID ==
[~2023-07-22] MED LIST changes: +SUMATRIPTAN20 MG NS
== END ==
LOC: MAMMO 09:26
DX: Z12.31 Encounter for screening mammogram for malignant neoplasm of breast (principal)

== ENCOUNTER 2023-08-19 18:08 | Emergency (ER) | payer MEDICARE, MEDICAID ==
[~2023-08-19] VITALS: Ht 175.3 cm; Wt 104.3 kg
[~2023-08-19 18:08] MED LIST changes: +METOCLOPRAMIDE10 M5 PO
[2023-08-19 19:56] LABS: BASO # 0.02 K/mm3 (0.02-0.10); EOS # 0.09 K/mm3 (0.04-0.40); EOS % 0.9 % (1.0-5.0); HEMATOCRIT 48.4 % (37.0-47.0); HEMOGLOBIN 15.3 g/dL (12.5-16.0); LYMPH# 2.64 K/mm3 (1.50-4.00); MEAN CELL VOLUME 97 fl (78-100); MEAN CORPUSCULAR HEMOGLOBIN 31 pg (27-31); MEAN CORPUSCULAR HGB CONC 32 g/dL (33-37); MEAN PLATELET VOLUME 9.3 fl (7.4-10.4); MONO # 0.85 K/mm3 (0.20-0.80); NEU # 6.17 K/mm3 (1.40-6.50); PLATELET COUNT 270 K/mm3 (130-400); RED BLOOD COUNT 4.97 M/mm3 (4.10-5.30); RED CELL DISTRIBUTION WIDTH 12.9 % (11.5-14.5); WHITE BLOOD COUNT 9.8 K/mm3 (4.8-10.8)
[2023-08-19 20:05] LABS: ALBUMIN 4.6 g/dL (3.5-5.0); SODIUM 140 mmol/L (136-145)
[2023-08-19 20:07] LABS: GLUCOSE 98 mg/dL (65-105)
[2023-08-19 20:08] LABS: CARBON DIOXIDE 24 mmol/L (22-29)
[2023-08-19 20:09] LABS: TOTAL BILIRUBIN 0.3 mg/dL (0.2-1.2)
[2023-08-19 20:13] LABS: AST-SGOT 12 U/L (5-34)
[2023-08-19 20:14] LABS: ALCOHOL IN-HOUSE < 10 mg/dL (<10); ALT/SGPT 10 U/L (0-55)
[2023-08-19 20:18] LABS: ACETAMINOPHEN < 1 ug/mL
[2023-08-20 00:02] VITALS: BP 148/88
== END 2023-08-20 00:02 | disposition home or self-care (01) ==
LOC: ED 18:08
PROVIDERS: Physician Assistant
DX: S40.021A Contusion of right upper arm, initial encounter (principal); F32.A Depression, unspecified; R45.851 Suicidal ideations; Z87.891 Personal history of nicotine dependence; X58.XXXA Exposure to other specified factors, initial encounter

== ENCOUNTER → 2023-09-22 | Outpatient (CLI) | payer MEDICARE, MEDICAID ==
[2023-09-22 16:20] LABS: BASO # 0.02 K/mm3 (0.02-0.10); EOS # 0.06 K/mm3 (0.04-0.40); EOS % 0.6 % (1.0-5.0); HEMATOCRIT 48.5 % (37.0-47.0); HEMOGLOBIN 15.5 g/dL (12.5-16.0); MEAN CELL VOLUME 93 fl (78-100); MEAN CORPUSCULAR HEMOGLOBIN 30 pg (27-31); MEAN CORPUSCULAR HGB CONC 32 g/dL (33-37); MEAN PLATELET VOLUME 8.9 fl (7.4-10.4); MONO # 0.94 K/mm3 (0.20-0.80); NEU # 5.79 K/mm3 (1.40-6.50); PLATELET COUNT 305 K/mm3 (130-400); RED BLOOD COUNT 5.19 M/mm3 (4.10-5.30); RED CELL DISTRIBUTION WIDTH 12.9 % (11.5-14.5)
[2023-09-22 16:23] LABS: ALBUMIN 4.3 g/dL (3.5-5.0); SODIUM 140 mmol/L (136-145)
[2023-09-22 16:25] LABS: CALCIUM 10.3 mg/dL (8.3-10.5)
[2023-09-22 16:26] LABS: GLUCOSE 138 mg/dL (65-105); TOTAL PROTEIN 7.8 g/dL (6.4-8.3)
[2023-09-22 16:27] LABS: CARBON DIOXIDE 22 mmol/L (22-29)
[2023-09-22 16:28] LABS: TOTAL BILIRUBIN 0.4 mg/dL (0.2-1.2)
[2023-09-22 16:31] LABS: AST-SGOT 15 U/L (5-34)
[2023-09-22 16:32] LABS: ALT/SGPT 20 U/L (0-55)
[2023-09-22 16:33] LABS: LIPASE 47 U/L (8-78)
[2023-09-22 16:34] LABS: URINE APPEARANCE CLEAR (CLEAR); URINE BILIRUBIN NEGATIVE (NEGATIVE); URINE BLOOD NEGATIVE (NEGATIVE); URINE COLOR YELLOW (YELLOW); URINE GLUCOSE NEGATIVE (NEGATIVE); URINE KETONE NEGATIVE (NEGATIVE); URINE LEUKOCYTE ESTERASE NEGATIVE (NEGATIVE); URINE NITRATE NEGATIVE (NEGATIVE); URINE PROTEIN(semi-quant) NEGATIVE (NEGATIVE)
[2023-09-22 16:35] LABS: URINE WBC 0-1 /hpf (0-3)
== END ==
LOC: LAB 16:03
PROVIDERS: Nurse Practitioner Family
DX: R10.9 Unspecified abdominal pain (principal)

== ENCOUNTER → 2023-09-23 | Outpatient (CLI) | payer MEDICARE, MEDICAID ==
[~2023-09-23] MED LIST changes: +Iohexol 300 - 100 ML VIAL IV ONE
== END ==
LOC: RAD 09:00
DX: R10.9 Unspecified abdominal pain (principal)
CPT/HCPCS: Q9967

== ENCOUNTER 2023-11-01 00:24 | Emergency (ER) | payer MEDICARE, MEDICAID ==
[~2023-11-01 00:24] MED LIST changes: +IMITREX 25MG TA25 MG; -Iohexol 300 - 100 ML VIAL IV ONE; +MOUNJARO2.5 MG/0.5 SC; +NURTEC ODT75 MG; +PALIPERIDONE E1.5 MG
[2023-11-01 00:59] LABS: BASO # 0.01 K/mm3 (0.02-0.10); EOS # 0.08 K/mm3 (0.04-0.40); EOS % 0.8 % (1.0-5.0); HEMATOCRIT 44.6 % (37.0-47.0); HEMOGLOBIN 15.1 g/dL (12.5-16.0); LYMPH# 3.75 K/mm3 (1.50-4.00); MEAN CELL VOLUME 90 fl (78-100); MEAN CORPUSCULAR HEMOGLOBIN 31 pg (27-31); MEAN CORPUSCULAR HGB CONC 34 g/dL (33-37); MEAN PLATELET VOLUME 9.4 fl (7.4-10.4); MONO # 1.03 K/mm3 (0.20-0.80); NEU # 5.52 K/mm3 (1.40-6.50); PLATELET COUNT 238 K/mm3 (130-400); RED BLOOD COUNT 4.95 M/mm3 (4.10-5.30); RED CELL DISTRIBUTION WIDTH 13.4 % (11.5-14.5); WHITE BLOOD COUNT 10.4 K/mm3 (4.8-10.8)
[2023-11-01] MEDS ORDERED: NS 1,000 ML IV SCH (01:00)
[2023-11-01 01:07] LABS: ALBUMIN 4.3 g/dL (3.5-5.0); SODIUM 138 mmol/L (136-145)
[2023-11-01 01:09] LABS: GLUCOSE 113 mg/dL (65-105); TOTAL PROTEIN 7.2 g/dL (6.4-8.3)
[2023-11-01 01:11] LABS: TOTAL BILIRUBIN 0.4 mg/dL (0.2-1.2)
[2023-11-01 01:15] LABS: AST-SGOT 16 U/L (5-34)
[2023-11-01 01:16] LABS: ALT/SGPT 22 U/L (0-55); CARBON DIOXIDE 15 mmol/L (22-29)
[2023-11-01] MEDS ORDERED: Iohexol 300 - 100 ML VIAL IV ONE (01:57)
[2023-11-01] MEDS ORDERED: PROMETHEGAN25 MG RC (02:38)
[2023-11-01] MEDS ORDERED: Home Promethazine 25 MG #1 SUPP/PACK RC ONE (02:45)
[2023-11-01 02:54] VITALS: BP 148/88
[2023-11-02] MEDS ORDERED: COMPAZINE10 M2 PO (23:24)
== END 2023-11-01 02:54 | disposition home or self-care (01) ==
LOC: ED 00:24
PROVIDERS: Physician Assistant
DX: R11.2 Nausea with vomiting, unspecified (principal); R19.7 Diarrhea, unspecified; E87.6 Hypokalemia; N39.0 Urinary tract infection, site not specified; Z87.891 Personal history of nicotine dependence; Z88.1 Allergy status to other antibiotic agents
CPT/HCPCS: J0780; J7030; Q9967

== ENCOUNTER 2023-11-02 18:04 | Emergency (ER) | payer MEDICARE, MEDICAID ==
[~2023-11-02] VITALS: Ht 165.1 cm; Wt 99.2 kg
[~2023-11-02 18:04] MED LIST changes: +PROMETHEGAN25 MG RC
[2023-11-02] MEDS ORDERED: NS 1,000 ML IV SCH (21:15)
[2023-11-02 21:19] LABS: BASO # 0.02 K/mm3 (0.02-0.10); EOS # 0.08 K/mm3 (0.04-0.40); HEMATOCRIT 45.8 % (37.0-47.0); HEMOGLOBIN 15.1 g/dL (12.5-16.0); LYMPH# 2.42 K/mm3 (1.50-4.00); MEAN CELL VOLUME 91 fl (78-100); MEAN CORPUSCULAR HEMOGLOBIN 30 pg (27-31); MEAN CORPUSCULAR HGB CONC 33 g/dL (33-37); MEAN PLATELET VOLUME 9.1 fl (7.4-10.4); MONO # 1.01 K/mm3 (0.20-0.80); NEU # 4.81 K/mm3 (1.40-6.50); PLATELET COUNT 259 K/mm3 (130-400); RED BLOOD COUNT 5.04 M/mm3 (4.10-5.30); RED CELL DISTRIBUTION WIDTH 13.6 % (11.5-14.5); WHITE BLOOD COUNT 8.4 K/mm3 (4.8-10.8)
[2023-11-02 21:28] LABS: ALBUMIN 4.3 g/dL (3.5-5.0)
[2023-11-02 21:29] LABS: CALCIUM 9.8 mg/dL (8.3-10.5)
[2023-11-02 21:30] LABS: TOTAL PROTEIN 7.2 g/dL (6.4-8.3)
[2023-11-02 21:32] LABS: TOTAL BILIRUBIN 0.4 mg/dL (0.2-1.2)
[2023-11-02 21:37] LABS: MAGNESIUM 2.38 mg/dL (1.60-2.60)
[2023-11-02] MEDS ORDERED: droPERidol 2.5 MG/ML 2 ML VIAL IV ONE (22:15)
[2023-11-02 23:03] LABS: URINE APPEARANCE CLEAR (CLEAR); URINE COLOR YELLOW (YELLOW)
[2023-11-02 23:04] LABS: URINE BILIRUBIN 1+ (NEGATIVE); URINE BLOOD NEGATIVE (NEGATIVE); URINE GLUCOSE NEGATIVE (NEGATIVE); URINE KETONE TRACE (NEGATIVE); URINE LEUKOCYTE ESTERASE NEGATIVE (NEGATIVE); URINE NITRATE NEGATIVE (NEGATIVE); URINE PROTEIN(semi-quant) NEGATIVE (NEGATIVE); URINE WBC 0-1 /hpf (0-3)
[2023-11-02 23:05] LABS: URINE MUCUS PRESENT (NOT PRESENT)
[2023-11-02] MEDS ORDERED: COMPAZINE10 M2 PO (23:24)
[2023-11-02 23:47] VITALS: BP 127/92
== END 2023-11-02 23:38 | disposition home or self-care (01) ==
LOC: ED 18:04
PROVIDERS: Physician Assistant
DX: R11.2 Nausea with vomiting, unspecified (principal)
CPT/HCPCS: J0780; J1790; J7030

== ENCOUNTER → 2023-12-09 | Outpatient (CLI) | payer MEDICARE, MEDICAID ==
[~2023-12-09] MED LIST changes: +COMPAZINE10 M2 PO
[2024-01-27 10:19] LABS: ALBUMIN 4.5 g/dL (3.5-5.0); CALCIUM 10.3 mg/dL (8.3-10.5); TOTAL BILIRUBIN 0.5 mg/dL (0.2-1.2)
[2024-01-27 10:42] LABS: BASO # 0.03 K/mm3 (0.02-0.10); EOS % 1.2 % (1.0-5.0); HEMATOCRIT 48.8 % (37.0-47.0); HEMOGLOBIN 15.8 g/dL (12.5-16.0); LYMPH# 2.27 K/mm3 (1.50-4.00); MEAN CELL VOLUME 91 fl (78-100); MEAN CORPUSCULAR HEMOGLOBIN 30 pg (27-31); MEAN CORPUSCULAR HGB CONC 32 g/dL (33-37); MEAN PLATELET VOLUME 8.8 fl (7.4-10.4); MONO # 0.87 K/mm3 (0.20-0.80); NEU # 4.96 K/mm3 (1.40-6.50); PLATELET COUNT 272 K/mm3 (130-400); RED BLOOD COUNT 5.34 M/mm3 (4.10-5.30); RED CELL DISTRIBUTION WIDTH 13.4 % (11.5-14.5); WHITE BLOOD COUNT 8.2 K/mm3 (4.8-10.8)
== END ==
LOC: LAB 14:52
PROVIDERS: Nurse Practitioner
DX: R23.3 Spontaneous ecchymoses (principal); Z79.899 Other long term (current) drug therapy

== ENCOUNTER → 2024-01-05 | Outpatient (CLI) | payer MEDICARE, MEDICAID ==
[2024-01-05 10:11] LABS: BASO # 0.01 K/mm3 (0.02-0.10); EOS # 0.07 K/mm3 (0.04-0.40); EOS % 0.9 % (1.0-5.0); HEMATOCRIT 46.2 % (37.0-47.0); HEMOGLOBIN 15.2 g/dL (12.5-16.0); LYMPH# 2.48 K/mm3 (1.50-4.00); MEAN CELL VOLUME 92 fl (78-100); MEAN CORPUSCULAR HEMOGLOBIN 30 pg (27-31); MEAN CORPUSCULAR HGB CONC 33 g/dL (33-37); MONO # 0.81 K/mm3 (0.20-0.80); NEU # 4.17 K/mm3 (1.40-6.50); PLATELET COUNT 244 K/mm3 (130-400); RED BLOOD COUNT 5.04 M/mm3 (4.10-5.30); RED CELL DISTRIBUTION WIDTH 14.2 % (11.5-14.5); WHITE BLOOD COUNT 7.5 K/mm3 (4.8-10.8)
[2024-01-05 10:15] LABS: ALBUMIN 4.3 g/dL (3.5-5.0)
[2024-01-05 10:17] LABS: CALCIUM 9.9 mg/dL (8.3-10.5)
[2024-01-05 10:18] LABS: TOTAL PROTEIN 7.4 g/dL (6.4-8.3); URINE APPEARANCE CLEAR (CLEAR); URINE COLOR YELLOW (YELLOW)
[2024-01-05 10:19] LABS: URINE BILIRUBIN 1+ (NEGATIVE); URINE BLOOD NEGATIVE (NEGATIVE); URINE GLUCOSE NEGATIVE (NEGATIVE); URINE KETONE TRACE (NEGATIVE); URINE LEUKOCYTE ESTERASE NEGATIVE (NEGATIVE); URINE NITRATE NEGATIVE (NEGATIVE); URINE PROTEIN(semi-quant) NEGATIVE (NEGATIVE)
[2024-01-05 10:20] LABS: TOTAL BILIRUBIN 0.4 mg/dL (0.2-1.2); URINE MUCUS PRESENT (NOT PRESENT)
== END ==
LOC: LAB 09:54
PROVIDERS: Nurse Practitioner
DX: E11.9 Type 2 diabetes mellitus without complications (principal); R23.3 Spontaneous ecchymoses; R30.0 Dysuria

== ENCOUNTER → 2024-01-27 | Outpatient (CLI) | payer MEDICARE, MEDICAID ==
[~2024-01-27] VITALS: Ht 165.1 cm; Wt 99.2 kg
[~2024-01-27] MED LIST changes: +NS 1,000 ML IV SCH
[2024-01-27 12:39] VITALS: BP 135/90
[2024-01-27 12:57] LABS: BASO # 0.02 K/mm3 (0.02-0.10); EOS # 0.05 K/mm3 (0.04-0.40); EOS % 0.6 % (1.0-5.0); HEMOGLOBIN 15.2 g/dL (12.5-16.0); LYMPH# 2.18 K/mm3 (1.50-4.00); MEAN CELL VOLUME 91 fl (78-100); MEAN CORPUSCULAR HEMOGLOBIN 30 pg (27-31); MEAN CORPUSCULAR HGB CONC 33 g/dL (33-37); MEAN PLATELET VOLUME 9.5 fl (7.4-10.4); MONO # 0.84 K/mm3 (0.20-0.80); NEU # 4.72 K/mm3 (1.40-6.50); PLATELET COUNT 237 K/mm3 (130-400); RED BLOOD COUNT 5.08 M/mm3 (4.10-5.30); RED CELL DISTRIBUTION WIDTH 13.9 % (11.5-14.5); WHITE BLOOD COUNT 7.8 K/mm3 (4.8-10.8)
[2024-01-27 13:07] LABS: ALBUMIN 4.3 g/dL (3.5-5.0)
[2024-01-27 13:08] LABS: SODIUM 140 mmol/L (136-145)
[2024-01-27 13:09] LABS: CALCIUM 10.6 mg/dL (8.3-10.5)
[2024-01-27 13:10] LABS: GLUCOSE 107 mg/dL (65-105); TOTAL PROTEIN 7.2 g/dL (6.4-8.3)
[2024-01-27 13:11] LABS: CARBON DIOXIDE 26 mmol/L (22-29)
[2024-01-27 13:12] LABS: TOTAL BILIRUBIN 0.6 mg/dL (0.2-1.2)
[2024-01-27 13:15] LABS: AST-SGOT 20 U/L (5-34)
[2024-01-27 13:17] LABS: ALT/SGPT 19 U/L (0-55)
[2024-01-27 13:44] VITALS: BP 143/90
== END ==
LOC: AMSURD 11:17
PROVIDERS: Nurse Practitioner
DX: R11.2 Nausea with vomiting, unspecified (principal)
CPT/HCPCS: J7030

== ENCOUNTER 2024-02-09 19:39 | Emergency (ER) | payer MEDICARE, MEDICAID ==
[~2024-02-09 19:39] MED LIST changes: -NS 1,000 ML IV SCH; -PALIPERIDONE E1.5 MG; +PALIPERIDONE E1.5 MG PO
[2024-02-09 20:07] LABS: BASO # 0.01 K/mm3 (0.02-0.10); EOS % 1.2 % (1.0-5.0); HEMATOCRIT 45.4 % (37.0-47.0); HEMOGLOBIN 14.9 g/dL (12.5-16.0); MEAN CELL VOLUME 92 fl (78-100); MEAN CORPUSCULAR HEMOGLOBIN 30 pg (27-31); MEAN CORPUSCULAR HGB CONC 33 g/dL (33-37); MEAN PLATELET VOLUME 8.9 fl (7.4-10.4); MONO # 0.93 K/mm3 (0.20-0.80); NEU # 4.31 K/mm3 (1.40-6.50); PLATELET COUNT 257 K/mm3 (130-400); RED BLOOD COUNT 4.94 M/mm3 (4.10-5.30); RED CELL DISTRIBUTION WIDTH 14.1 % (11.5-14.5); WHITE BLOOD COUNT 8.6 K/mm3 (4.8-10.8)
[2024-02-09 20:17] LABS: ALBUMIN 4.3 g/dL (3.5-5.0)
[2024-02-09 20:18] LABS: SODIUM 142 mmol/L (136-145)
[2024-02-09 20:19] LABS: CALCIUM 10.2 mg/dL (8.3-10.5)
[2024-02-09 20:20] LABS: GLUCOSE 113 mg/dL (65-105); TOTAL PROTEIN 7.2 g/dL (6.4-8.3)
[2024-02-09 20:21] LABS: CARBON DIOXIDE 21 mmol/L (22-29)
[2024-02-09 20:22] LABS: TOTAL BILIRUBIN 0.5 mg/dL (0.2-1.2)
[2024-02-09 20:23] LABS: D-DIMER 1.51 mg/L FEU (0.15-0.50)
[2024-02-09 20:25] LABS: AST-SGOT 18 U/L (5-34)
[2024-02-09 20:26] LABS: ALT/SGPT 15 U/L (0-55)
[2024-02-09 20:27] LABS: LIPASE 43 U/L (8-78)
[2024-02-09 20:51] LABS: TROPONIN-I < 0.030 ng/mL (0.00-0.033)
[2024-02-09] MEDS ORDERED: Iohexol 350 - 100 ML VIAL IV ONE (21:25)
[2024-02-09] MEDS ORDERED: Dextrose/Magnesium Sulfate 100 ML IV ONE (22:00)
[2024-02-09] MEDS ORDERED: SERTRALINE50 MG PO (22:36)
[2024-02-09] MEDS ORDERED: Ketorolac 30 MG/ML VIAL IV ONE (23:15)
[2024-02-09 23:49] VITALS: BP 134/99
== END 2024-02-09 23:49 | disposition home or self-care (01) ==
LOC: ED 19:39
PROVIDERS: Family Medicine
DX: R07.89 Other chest pain (principal); G43.909 Migraine, unspecified, not intractable, without status migrainosus; R79.1 Abnormal coagulation profile
CPT/HCPCS: J1885; J3475; J7120; Q9967

== ENCOUNTER 2024-02-21 06:33 | Emergency (ER) | payer MEDICARE, MEDICAID ==
[~2024-02-21] VITALS: Ht 175.3 cm; Wt 87.9 kg
[~2024-02-21 06:33] MED LIST changes: +SERTRALINE50 MG PO
[2024-02-21 07:09] LABS: BASO # 0.01 K/mm3 (0.02-0.10); EOS # 0.08 K/mm3 (0.04-0.40); EOS % 1.2 % (1.0-5.0); HEMATOCRIT 45.5 % (37.0-47.0); HEMOGLOBIN 14.8 g/dL (12.5-16.0); LYMPH# 2.23 K/mm3 (1.50-4.00); MEAN CELL VOLUME 93 fl (78-100); MEAN CORPUSCULAR HEMOGLOBIN 30 pg (27-31); MEAN CORPUSCULAR HGB CONC 33 g/dL (33-37); MEAN PLATELET VOLUME 9.2 fl (7.4-10.4); NEU # 3.47 K/mm3 (1.40-6.50); PLATELET COUNT 236 K/mm3 (130-400); RED CELL DISTRIBUTION WIDTH 14.1 % (11.5-14.5); WHITE BLOOD COUNT 6.5 K/mm3 (4.8-10.8)
[2024-02-21 07:16] LABS: ALBUMIN 4.2 g/dL (3.5-5.0)
[2024-02-21 07:17] LABS: CALCIUM 9.8 mg/dL (8.3-10.5)
[2024-02-21 07:18] LABS: TOTAL PROTEIN 6.9 g/dL (6.4-8.3)
[2024-02-21 07:20] LABS: TOTAL BILIRUBIN 0.5 mg/dL (0.2-1.2)
[2024-02-21 07:36] LABS: MAGNESIUM 1.79 mg/dL (1.60-2.60)
[2024-02-21 07:43] LABS: PH-URINE 5.5 (5.0 - 8.0); URINE APPEARANCE SLIGHTLY CLOUDY (CLEAR); URINE BILIRUBIN 2+ (NEGATIVE); URINE BLOOD TRACE (NEGATIVE); URINE COLOR AMBER (YELLOW); URINE GLUCOSE 1+ (NEGATIVE); URINE KETONE 1+ (NEGATIVE); URINE LEUKOCYTE ESTERASE NEGATIVE (NEGATIVE); URINE MUCUS PRESENT (NOT PRESENT); URINE NITRATE POSITIVE (NEGATIVE); URINE PROTEIN(semi-quant) 2+ (NEGATIVE)
[2024-02-21 07:55] LABS: TROPONIN-I < 0.030 ng/mL (0.00-0.033)
[2024-02-21] MEDS ORDERED: Dextrose/Magnesium Sulfate 100 ML IV ONE (08:00)
[2024-02-21] MEDS ORDERED: AMLODIPINE BES2.5 MG PO (08:13)
[2024-02-21] MEDS ORDERED: ZYRTEC10 M3 PO (08:14)
[2024-02-21] MEDS ORDERED: Polyethylene Glycol 3350 Powder 17 GM PACKET PO ONE (08:15)
[2024-02-21] MEDS ORDERED: Ketorolac 30 MG/ML VIAL IV ONE (09:00)
[2024-02-21] MEDS ORDERED: Prochlorperazine 10 MG TAB PO ONE (09:00)
[2024-02-21 10:19] VITALS: BP 121/104
[2024-02-21] MEDS ORDERED: PROPRANOLOL HCL40 M2 PO (22:19)
[2024-02-21] MEDS ORDERED: PALIPERIDONE ER3 MG PO (22:20)
== END 2024-02-21 09:21 | disposition home or self-care (01) ==
LOC: ED 06:33
PROVIDERS: Family Medicine
DX: R07.89 Other chest pain (principal); N39.0 Urinary tract infection, site not specified; R63.4 Abnormal weight loss; E86.0 Dehydration; R51.9 Headache, unspecified
CPT/HCPCS: J1885; J3475; J7120

== ENCOUNTER 2024-02-21 21:45 | Emergency (ER) | payer MEDICARE, MEDICAID ==
[~2024-02-21] VITALS: Ht 172.7 cm; Wt 91.0 kg
[~2024-02-21 21:45] MED LIST changes: +AMLODIPINE BES2.5 MG PO; +ZYRTEC10 M3 PO
[2024-02-21] MEDS ORDERED: PROPRANOLOL HCL40 M2 PO (22:19)
[2024-02-21] MEDS ORDERED: PALIPERIDONE ER3 MG PO (22:20)
[2024-02-21] MEDS ORDERED: Promethazine 50 MG/ML 1 ML VIAL IM ONE (22:30)
[2024-02-21] MEDS ORDERED: diphenhydrAMINE 50 MG/ML 1 ML VIAL IV ONE (22:30)
[2024-02-21] MEDS ORDERED: NS 1,000 ML IV SCH ×2 (22:30→23:30)
[2024-02-21] MEDS ORDERED: Ketorolac 30 MG/ML VIAL IV ONE (22:30)
[2024-02-21] MEDS ORDERED: dexAMETHasone 4 MG/ML VIAL IV ONE (23:45)
[2024-02-21] MEDS ORDERED: Acetaminophen 500 MG TAB PO ONE (23:45)
[2024-02-22 00:40] VITALS: BP 169/88
== END 2024-02-22 00:40 | disposition home or self-care (01) ==
LOC: ED 21:45
DX: G43.909 Migraine, unspecified, not intractable, without status migrainosus (principal)
CPT/HCPCS: J1100; J1200; J1885; J2550; J7030

== ENCOUNTER → 2024-02-25 | Outpatient (CLI) | payer MEDICARE, MEDICAID ==
[~2024-02-25] MED LIST changes: +PALIPERIDONE ER3 MG PO; +PROPRANOLOL HCL40 M2 PO
[2024-02-25 14:19] LABS: URINE APPEARANCE SLIGHTLY CLOUDY (CLEAR); URINE COLOR YELLOW (YELLOW)
[2024-02-25 14:20] LABS: URINE BILIRUBIN 1+ (NEGATIVE); URINE BLOOD NEGATIVE (NEGATIVE); URINE GLUCOSE NEGATIVE (NEGATIVE); URINE KETONE NEGATIVE (NEGATIVE); URINE LEUKOCYTE ESTERASE NEGATIVE (NEGATIVE); URINE NITRATE NEGATIVE (NEGATIVE); URINE PROTEIN(semi-quant) NEGATIVE (NEGATIVE)
[2024-02-25 14:21] LABS: URINE MUCUS PRESENT (NOT PRESENT)
== END ==
LOC: RAD 13:54
PROVIDERS: Nurse Practitioner
DX: R10.9 Unspecified abdominal pain (principal)

== ENCOUNTER 2024-10-21 19:07 | Emergency (ER) | payer MEDICARE, MEDICAID ==
[~2024-10-21] VITALS: Ht 175.3 cm; Wt 80.0 kg
[2024-10-21] MEDS ORDERED: Ketorolac 30 MG/ML VIAL IV ONE (19:30)
[2024-10-21] MEDS ORDERED: NS 1,000 ML IV SCH (19:30)
[2024-10-21] MEDS ORDERED: HYDROcodone/Acetaminophen 10-325 MG TAB PO ONE (20:45)
[2024-10-21] MEDS ORDERED: Acetaminophen 325 MG TAB PO ONE (20:45)
[2024-10-21 21:53] VITALS: BP 130/73
[2024-10-22] MEDS ORDERED: LAMOTRIGINE150 MG PO (18:09)
[2024-10-22] MEDS ORDERED: PALIPERIDONE ER9 MG PO (18:10)
[2024-10-22] MEDS ORDERED: FLUTICASON0.05 MG/Ac NS (18:10)
[2024-10-22] MEDS ORDERED: MOUNJARO5 MG/0.5 M SQ (18:12)
[2024-10-22] MEDS ORDERED: COMPAZINE5 M2 PO (18:59)
== END 2024-10-21 21:53 | disposition home or self-care (01) ==
LOC: ED 19:07
DX: S06.0X0A Concussion without loss of consciousness, initial encounter (principal); S00.03XA Contusion of scalp, initial encounter; Z87.891 Personal history of nicotine dependence; Z45.09 Encounter for adjustment and management of other cardiac device; W20.8XXA Other cause of strike by thrown, projected or falling object, initial encounter; Y93.89 Activity, other specified; Y92.89 Other specified places as the place of occurrence of the external cause
CPT/HCPCS: J1885; J2765; J7030

== ENCOUNTER 2024-10-22 17:57 | Emergency (ER) | payer MEDICARE, MEDICAID ==
[~2024-10-22] VITALS: Ht 175.3 cm; Wt 76.8 kg
[2024-10-22] MEDS ORDERED: LAMOTRIGINE150 MG PO (18:09)
[2024-10-22] MEDS ORDERED: PALIPERIDONE ER9 MG PO (18:10)
[2024-10-22] MEDS ORDERED: FLUTICASON0.05 MG/Ac NS (18:10)
[2024-10-22] MEDS ORDERED: MOUNJARO5 MG/0.5 M SQ (18:12)
[2024-10-22] MEDS ORDERED: Ketorolac 30 MG/ML VIAL IV ONE (18:30)
[2024-10-22] MEDS ORDERED: NS 1,000 ML IV SCH (18:30)
[2024-10-22] MEDS ORDERED: COMPAZINE5 M2 PO (18:59)
[2024-10-22] MEDS ORDERED: Prochlorperazine 10 MG TAB PO PRN (19:15)
[2024-10-22 20:00] VITALS: BP 153/99
== END 2024-10-22 20:29 | disposition home or self-care (01) ==
LOC: ED 17:57
DX: S09.90XA Unspecified injury of head, initial encounter (principal); G43.709 Chronic migraine without aura, not intractable, without status migrainosus; R11.2 Nausea with vomiting, unspecified; Z79.899 Other long term (current) drug therapy; W20.8XXA Other cause of strike by thrown, projected or falling object, initial encounter; Y92.89 Other specified places as the place of occurrence of the external cause
CPT/HCPCS: J0780; J1885; J7030